=== PATIENT | male | born 1950 | race Caucasian/White ===

== ENCOUNTER 2016-04-22 15:12 | Emergency (ER) | payer OTHER ==
[~2016-04-22] VITALS: Ht 175.3 cm; Wt 91.2 kg
--- NOTE | ~2016-04-22 | EKG ---
[address] [place] [address] ELECTROCARDIOGRAM REPORT Name: AMBER DELATORRE [facility] [id number] Admission: 04/22/16 Attend Phys: Discharge: Date of : 54 Report #: [id number] THIS REPORT FOR: //name// [facility] ED Test Date: 2016-04-22 Test Time: 16:14:03 Pat Name: AMBER DELATORRE Department: Room: Gender: Systems Development Consultant: jaylene : 1950 Requested By: Lizzy Davila Order Number: [id number] MD: Masood Jim Measurements Intervals [place] Rate: 66 P: NE: 163 QRS: -59 QRSD: 135 T: 29 QT: 467 QTc: 490 Interpretive Statements Atrial-paced rhythm RBBB and LAFB Baseline wander in lead(s) V1 No previous ECG available for comparison Electronically Signed On 04-22-2016 16:38:35 SEPARATOR INSERTER by Masood Jim [email or web address] <ELECTRONICALLY SIGNED> By: Masood Jim MD 04/22/16 1638 1614 1614 Masood Jim MD /CARMINA
[~2016-04-22 15:12] MED LIST: AMANTADINE 100100 MG PO; ARICEPT10 MG PO; BENZTROPINE MES1 MG PO; CELEXA20 MG PO; CENTRUM SILVER1 EAC2 PO; CLOZAPINE100 M1 PO; DEPAKOTE 250MG250 M1 PO; FISH OIL 1,001000 M2 PO; HYDROCODON-ACE1 EAC7 PO; LEVOTHYROXINE 0.15MG PO; NAMENDA 10 MG T10 MG PO; OMEPRAZOLE40 MG PO; SIMVASTATIN20 MG PO; VITAMIN D3400 UNIT PO
[2016-04-22 15:40] LABS: ABSOLUTE NEUTROPHILS 7.1 thou/uL (1.4-8.2); BASOPHILS 0.8 % (0.0-2.0); EOSINOPHILS 4.9 % (0.0-3.0); HEMOGLOBIN 13.8 gm/dL (14.0-18.0); LYMPHOCYTES 25.9 % (24.0-44.0); MCHC 33.7 % (28.0-37.0); MCV 86.2 fL (80.0-100.0); PLATELET COUNT 234 thou/uL (150-400); POLYS 58.4 % (36.0-66.0); RBC 4.76 mil/uL (4.50-6.00); RDW 15.1 % (10.5-14.5); WBC 12.1 thou/uL (4.0-11.0)
[2016-04-22 15:41] LABS: MANUAL DIFF NO
[2016-04-22 15:48] LABS: ANION GAP 8 mmol/L (7-16); BUN 14 mg/dL (7-18); CALCIUM 9.6 mg/dL (8.5-10.1); CHLORIDE 103 mmol/L (98-107); CO2 31 mmol/L (21-32); CREATININE 1.1 mg/dL (0.6-1.3); GLUCOSE 94 mg/dL (70-99); POTASSIUM 4.2 mmol/L (3.5-5.1); SODIUM 142 mmol/L (136-145)
[2016-04-22 15:55] LABS: ACETAMINOPHEN < 2 ug/mL (10-30); ALKALINE PHOSPHATASE 129 U/L (46-116); SALICYLATE < 2.8 mg/dL (2.8-20.0); SGOT 13 U/L (15-37); SGPT 17 U/L (30-65); TOTAL BILIRUBIN 0.3 mg/dL (<0.1-1.0); TOTAL PROTEIN 7.2 g/dL (6.4-8.2)
[2016-04-22 16:44] LABS: URINE BILIRUBIN NEGATIVE (Negative); URINE BLOOD NEGATIVE (Negative); URINE COLOR YELLOW; URINE GLUCOSE-RANDOM* NEGATIVE (Negative); URINE KETONES NEGATIVE (Negative); URINE LEUKOCYTES-REFLEX NEGATIVE (Negative); URINE PROTEIN (DIPSTICK) NEGATIVE (Negative)
[2016-04-22 16:51] LABS: AMP/METHAMP Negative (Negative); BARBITURATES Negative (Negative); BENZODIAZEPINES Negative (Negative); COCAINE Negative (Negative); METHADONE Negative (Negative); OPIATES POSITIVE (Negative); PCP Negative (Negative); THC Negative (Negative)
== END 2016-04-22 17:43 | disposition home or self-care (01) ==
LOC: ER 15:12
PROVIDERS: Emergency Medicine
DX: T36.1X1A Poisoning by cephalosporins and other beta-lactam antibiotics, accidental (unintentional), initial encounter (principal); F20.9 Schizophrenia, unspecified; G61.0 Guillain-Barre syndrome; I10 Essential (primary) hypertension; G30.9 Alzheimer's disease, unspecified; F02.80 Dementia in other diseases classified elsewhere, unspecified severity, without behavioral disturbance, psychotic disturbance, mood disturbance, and anxiety; Z88.6 Allergy status to analgesic agent; Z88.1 Allergy status to other antibiotic agents; Z87.891 Personal history of nicotine dependence

== ENCOUNTER 2017-04-20 16:40 | Inpatient (IN) | payer OTHER ==
[~2017-04-20] VITALS: Ht 172.7 cm; Wt 83.5 kg
--- NOTE | ~2017-04-20 | EKG ---
[address] [place] [address] ELECTROCARDIOGRAM REPORT Name: AMBER DELATORRE Room #: 443-P ADM IN M.R.#: [id number] Admission: 04/20/17 Attend Phys: Kristopher Alvares DO Discharge: Date of : 54 Report #: [id number] THIS REPORT FOR: //name// [facility] ED Test Date: 2017-04-20 Test Time: 17:43:05 Pat Name: AMBER DELATORRE Department: Room: 443 Gender: M Seismology Technical Officer: akbar : 1950 Requested By: Jarret Cavanaugh Order Number: [id number] MD: Clement Kelley Measurements Intervals [place] Rate: 66 P: 7 VT: 146 QRS: -65 QRSD: 135 T: 20 QT: 465 QTc: 488 Interpretive Statements Sinus rhythm RBBB and LAFB Compared to ECG 06/01/2016 14:24:27 Atrial-paced complex(es) or rhythm no longer present Electronically Signed On 04-20-2017 23:05:59 FOREIGN LAW CONSULTANT by Clement Kelley [email or web address] <ELECTRONICALLY SIGNED> By: Clement Kelley MD 04/20/17 2306 [id number] 1743 Clement Kelley MD /CARMINA
[2017-04-20 16:41] VITALS: BP 127/77
[2017-04-20 17:50] LABS: HEMATOCRIT 40.2 % (42.0-52.0); HEMOGLOBIN 13.4 gm/dL (14.0-18.0); MCHC 33.3 g/dL (28.0-37.0); MCV 86.9 fL (80.0-100.0); PLATELET COUNT 126 thou/uL (150-400); RBC 4.63 mil/uL (4.50-6.00); RDW 15.6 % (10.5-14.5); WBC 6.5 thou/uL (4.0-11.0)
[2017-04-20] MEDS ORDERED: DOXYCYCLINE 10100 MG PO (17:58)
[2017-04-20] MEDS ORDERED: AMANTADINE 100100 M1 PO (17:58)
[2017-04-20 18:03] LABS: ANION GAP 13 mmol/L (7-16); BUN 37 mg/dL (7-18); CHLORIDE 105 mmol/L (98-107); CO2 25 mmol/L (21-32); CREATININE 1.2 mg/dL (0.7-1.3); GLUCOSE 76 mg/dL (74-106); POTASSIUM 3.9 mmol/L (3.5-5.1); SODIUM 143 mmol/L (136-145)
[2017-04-20 18:11] LABS: TROPONIN-I < 0.04 ng/mL (<0.06)
[2017-04-20] MEDS ORDERED: TESSALON PERLE100 MG PO (18:24)
[2017-04-20 18:27] LABS: ABSOLUTE NEUTROPHILS 4.2 thou/uL (1.4-8.2)
[2017-04-20 18:28] LABS: ANISOCYTOSIS 1+; POIKILOCYTOSIS SLIGHT; POLYCHROMASIA OCCASIONAL
[2017-04-20 21:50] VITALS: BP 136/84
[2017-04-20 22:25] VITALS: BP 114/82
[2017-04-21 03:20] VITALS: BP 133/67
[2017-04-21 03:54] LABS: HEMATOCRIT 40.2 % (42.0-52.0); HEMOGLOBIN 13.1 gm/dL (14.0-18.0); MCH 28.5 pg (26.0-34.0); MCHC 32.7 g/dL (28.0-37.0); MCV 87.4 fL (80.0-100.0); RBC 4.6 mil/uL (4.50-6.00); RDW 15.8 % (10.5-14.5); WBC 5.8 thou/uL (4.0-11.0)
[2017-04-21 04:02] LABS: CALCIUM 8.4 mg/dL (8.5-10.1); POTASSIUM 3.6 mmol/L (3.5-5.1)
[2017-04-21 08:08] VITALS: BP 134/76
[2017-04-21 17:23] VITALS: BP 148/75
[2017-04-21 19:21] VITALS: BP 144/75
[2017-04-22 05:19] VITALS: BP 121/67
[2017-04-22 05:30] LABS: HEMATOCRIT 37.1 % (42.0-52.0); HEMOGLOBIN 12.2 gm/dL (14.0-18.0); MCH 28.7 pg (26.0-34.0); MCV 87.2 fL (80.0-100.0); RBC 4.26 mil/uL (4.50-6.00); RDW 15.3 % (10.5-14.5); WBC 7.8 thou/uL (4.0-11.0)
[2017-04-22 05:53] LABS: ALBUMIN 2.5 g/dL (3.4-5.0); CALCIUM 8.1 mg/dL (8.5-10.1); CREATININE 0.8 mg/dL (0.7-1.3); POTASSIUM 3.5 mmol/L (3.5-5.1); TOTAL BILIRUBIN 0.5 mg/dL (<0.1-1.0); TOTAL PROTEIN 5.8 g/dL (6.4-8.2)
[2017-04-22 08:15] VITALS: BP 122/65
[2017-04-22 15:45] VITALS: BP 113/81
[2017-04-22 19:42] VITALS: BP 134/112
[2017-04-23 04:32] VITALS: BP 143/81
[2017-04-23 06:13] LABS: HEMATOCRIT 37.5 % (42.0-52.0); HEMOGLOBIN 12.3 gm/dL (14.0-18.0); MCH 28.6 pg (26.0-34.0); MCHC 32.7 g/dL (28.0-37.0); MCV 87.5 fL (80.0-100.0); RBC 4.28 mil/uL (4.50-6.00); RDW 15.8 % (10.5-14.5); WBC 6.1 thou/uL (4.0-11.0)
[2017-04-23 06:35] LABS: ALBUMIN 2.3 g/dL (3.4-5.0); CALCIUM 8.3 mg/dL (8.5-10.1); CREATININE 0.8 mg/dL (0.7-1.3); POTASSIUM 3.8 mmol/L (3.5-5.1); TOTAL BILIRUBIN 0.5 mg/dL (<0.1-1.0); TOTAL PROTEIN 5.7 g/dL (6.4-8.2)
[2017-04-23 08:28] VITALS: BP 127/73
[2017-04-23 14:19] VITALS: BP 127/73
[2017-04-23 14:33] VITALS: BP 127/73
[2017-10-23] MEDS ORDERED: MSL20MG/ML SUBLING (12:20)
[2017-10-23] MEDS ORDERED: LASIX 10 MG/10 MG/M1 PO (12:20)
[2017-10-23] MEDS ORDERED: ONDANSETRON ODT4 MG PO (12:20)
[2017-10-23] MEDS ORDERED: LORAZEPAM I2 MG/1 M2 SUBLING (12:20)
== END 2017-04-23 14:55 | disposition home health service (06) | DRG 682 ==
LOC: ER 16:40 → EROBS 19:49 → 4S 19:49
PROVIDERS: Emergency Medicine; Hospitalist; Nurse Practitioner Family
DX: N17.0 Acute kidney failure with tubular necrosis (principal); E43 Unspecified severe protein-calorie malnutrition; J40 Bronchitis, not specified as acute or chronic; C43.9 Malignant melanoma of skin, unspecified; G30.9 Alzheimer's disease, unspecified; F02.80 Dementia in other diseases classified elsewhere, unspecified severity, without behavioral disturbance, psychotic disturbance, mood disturbance, and anxiety; I10 Essential (primary) hypertension; F20.9 Schizophrenia, unspecified; E78.5 Hyperlipidemia, unspecified; D69.6 Thrombocytopenia, unspecified; I48.91 Unspecified atrial fibrillation; Z79.899 Other long term (current) drug therapy; Z95.0 Presence of cardiac pacemaker; Z88.1 Allergy status to other antibiotic agents; Z88.8 Allergy status to other drugs, medicaments and biological substances; Z87.891 Personal history of nicotine dependence
CPT/HCPCS: 10100

== ENCOUNTER 2017-06-24 16:52 | Inpatient (IN) | payer OTHER ==
[~2017-06-24] VITALS: Ht 172.7 cm; Wt 85.7 kg
--- NOTE | ~2017-06-24 | HC ---
[facility] [place] [address] CONSULTATION Name: AMBER DELATORRE Room #: 428-P [facility] IN M.R.#: [id number] Admission: 06/24/17 Attend Phys: Tae Beltre MD Discharge: Date of : 54 Report #: [id number] THIS REPORT FOR: //name// CC: Tae Salgado HISTORY OF PRESENT ILLNESS: This patient is known to me for therapy of metastatic malignant melanoma. He most recently has received ipilimumab and Opdivo for progressive bony metastatic disease involving his right femur. This therapy was held because of development of watery diarrhea. The nivolumab-ipilimumab infusion was begun on 05/29/2017 for one cycle only. He, on 06/19/2017, was placed on prednisone 50 mg each morning. In spite of this, he has continued to have watery bowel movements and was brought to the Emergency Room with weakness and diarrhea. He denies shaking chills or fevers. He is unaware of any new masses or pain. He has had some blood mixed in with his stool. PAST MEDICAL HISTORY: Significant for medically managed hypertension, hypothyroidism, hyperlipidemia, Guillain [place], Alzheimer's and schizophrenia. He had a melanoma removed from his scalp in 2014. In March 2016, he was found to have a painful pelvic mass that on biopsy showed metastatic melanoma. This tumor was BRAF mutation wild type and he went on to receive palliative radiation therapy to the right ilium on 04/27/2016. He subsequently started receiving Keytruda along with Zometa in 05/2016. In spite of palliative radiation therapy, this area experienced a pathologic fracture, but interestingly has become pain-free and he is able to walk on this hip. A PET scan on 04/05/2017 shows new bony lesions leading to the aforementioned change in his current therapy. FAMILY HISTORY: Not contributory. SOCIAL HISTORY: He is a nondrinker, nonsmoker. REVIEW OF SYSTEMS: As in the history of present illness. PHYSICAL EXAMINATION: GENERAL: Shows a mentally slow, white male who is happy and friendly and currently not complaining. He is afebrile. HEENT: Shows him to be normocephalic. CARDIOVASCULAR: Normal S1, S2. CHEST: Clear. ABDOMEN: Soft. NEUROLOGIC: Shows no focal localizing signs. PSYCHIATRIC: Not agitated or confused. He is mentally impaired. [address] [address] CONSULTATION Name: AMBER DELATORRE Room #: [address] [place] [address] IN M.R.#: [id number] Admission: 06/24/17 Attend Phys: Tae Beltre MD Discharge: Date of : 54 Report #: [id number] SKIN: Shows bruising, but normal turgor. LABORATORY DATA: Include a CAT scan showing diffuse colitis. ASSESSMENT: 1. Known metastatic malignant melanoma. 2. Assumed immunotherapy-related colitis with diarrhea. PLAN: The patient has been on hold from his treatment and we will increase his dose of steroids. A colonoscopy is planned. Thanks for notifying me of his hospitalization and allowing me to participate in his care. By: 1500 1618 Carolina Ervin MD /cyndi
--- NOTE | ~2017-06-24 | S ---
[facility] [place] [address] SURGICAL PATH RPT PROCEDURE Name: AMBER CUELLO Room #: 226-P ADM IN M.R.#: [id number] Admission: 06/24/17 Date of : 54 Discharge: Report #: [id number] Path Case #: [id number] PATHOLOGY REPORT COLLECTION DATE: 06/27/2017 RECEIVED DATE: 06/27/2017 SUBMITTING PHYS: Dr. Kita Jim OTHER PHYS: Tae Beltre M.D. Dr. Shreyas Salgado SPECIMEN(S) RECEIVED: A.Terminal ileum B.Ulcerated cecum C.Ascending colon D.Splenic flexure polyp E.Random bx of ulcerated sigmoid colon F.Ulcerated rectum * * * * * * * * * * * * FINAL DIAGNOSIS: A. Small bowel mucosa, terminal ileum, endoscopic biopsy: - No diagnostic abnormalities present. B. Large intestinal mucosa, ulcerated cecum, endoscopic biopsy: - Marked active colitis, history of ulcerative colitis. - Negative for dysplasia or malignancy. C. Large intestinal mucosa, ascending colon, endoscopic biopsy: - Marked active colitis, history of ulcerative colitis. - Negative for dysplasia or malignancy. D. Polyp, at splenic flexure, endoscopic biopsy: - Favor reactive changes within polypoid mucosa. - Marked active colitis, history of ulcerative colitis. - Negative for dysplasia or malignancy. E. Large intestinal mucosa, random/ulcerated sigmoid colon, endoscopic biopsy: - Marked active colitis, history of ulcerative colitis. - Negative for dysplasia or malignancy. F. Large intestinal mucosa, ulcerated rectum, endoscopic biopsy: - Marked active colitis, history of ulcerative colitis. - Negative for dysplasia or malignancy. COMMENT: Examination shows a markedly expanded lamina propria comprised of neutrophils, eosinophils, lymphocytes as well as plasma cells. Basal plasmacytosis is identified in scattered foci. In addition, there is surface epithelial ulceration, crypt abscess formation, as well as extensive cryptitis present. There are no granulomata identified. All fragments sampled show a similar intensity of inflammation. [facility] [address] [place] [address] SURGICAL PATH RPT PROCEDURE Name: AMBER CUELLO Room #: 226-P ADM IN M.R.#: [id number] Admission: 06/24/17 Date of : 54 Discharge: Report #: [id number] Path Case #: [id number] Findings are consistent with the provided history of ulcerative colitis. The fragments sampled as "polyp at splenic flexure" is consistent with an inflammatory polyp with marked active inflammation present. There are reactive changes with stratification of the epithelial cells identified; however, the intensity of inflammation supports a reactive process. Please correlate clinically and follow-up as indicated. (IUV:db; 06/28/2017) PATHOLOGIST: Salma Mariee M.D. REPORT ELECTRONICALLY SIGNED BY: Salma Mariee M.D. DATE/TIME: 06/28/2017 14:53 * * * * * * * * * * * * GROSS PATHOLOGY: A. received in formalin labeled "Amber Cuello, BX terminal ileum" and consists of 2 soft scanlon tissue fragments measuring 0.2 and 0.4 cm. There are entirely submitted as A1. B. The specimen is received in formalin, labeled "Amber Cuello, BX of ulcerated cecum" and consists of 2 soft scanlon tissue fragments each averaging 0.3 cm. They are entirely submitted as B1. C. The specimen is received in formalin, labeled "Amber Cuello, BX of ascending colon" and consists of 2 soft scanlon tissue fragments measuring 0.2 and 0.4 cm. There are entirely submitted as C1. D. The specimen is received in formalin, labeled "Amber Cuello, BX of polyp at splenic flexure" and consists of 2 soft scanlon tissue fragments measuring 0.3 and 0.6 cm. They are entirely submitted as D1. E. The specimen is received in formalin, labeled "Amber Cuello, random BX of ulcerated sigmoid colon" and consists of 2 soft scanlon tissue fragments each averaging 0.4 cm. There are entirely submitted as E1. F. The specimen is received in formalin, labeled "Amber Cuello, BX of ulcerated rectum" and consists of a 0.4 cm soft scanlon tissue fragment which is entirely submitted as F1. (JEAN; 06/27/2017) CLINICAL HISTORY: Colitis, GI bleed, patient Obdivo, RLQ pain, ulcerative colitis INITIAL CPT CODE(S): A; 54266 B; 80541 C; 53458 D; [address] [address] SURGICAL PATH RPT PROCEDURE Name: AMBER CUELLO Room #: 226-P ADM IN M.R.#: [id number] Admission: 06/24/17 Date of : 54 Discharge: Report #: [id number] Path Case #: [id number]; [id number] F; [id number] Professional services performed by [facility] at [facility] [address] [place] [address] Technical services performed by [facility] at [address] [place] [address], [facility] [address] [address]. [facility] [address] [place] [address] PHONE: [phone] DIRECTOR: Renny Tompkins M.D. * * * END OF REPORT * * *
--- NOTE | ~2017-06-24 | HC ---
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 He has been on immunotherapy for his metastatic melanoma. He had diarrhea x 10 days and will occur approximately 10 minutes after eating. He has been on loperamide. He does have pathologic fracture of his right iliac bone. CT scan was obtained here and showed evidence of colitis. Diarrhea was thought to be possibly due to C. diff, although C. diff culture was noted to be negative and it is thought that may be due to . He is to have colonoscopy. He has the lower extremity weakness and decreased functional mobility and ADLs and we are seeing him in rehabilitation medicine consultation. PAST MEDICAL HISTORY: As noted above. He has also had a cardiac pacer with defibrillator and hypertension. MEDICATIONS: Please see the full medication listing. ALLERGIES: BACITRACIN, CORTIZONE, NEOMYCIN AND POLYMYXIN. HABITS: Past history of tobacco abuse, quit greater than a year ago, history of alcohol use weekly. SOCIAL HISTORY: Lives with his sister who apparently is older than he is and assist with him. She cares for his medications, drives him to appointments. Two steps in. He was able to ambulate independently utilizing a walker and was able to do his own ADLs. REVIEW OF SYSTEMS: Complains of the diarrhea. No complaints of chest pain, shortness of breath or abdominal discomfort. He has bilateral lower extremity weakness, which he relates back to Guillain-[place] syndrome. He notes that since he had the Guillain-[place] syndrome in the past. He is needing to utilize the walker to assist for his weakness. PHYSICAL EXAMINATION: GENERAL: A pleasant 66-year-old white male in no obvious distress. VITAL SIGNS: Last recorded temperature 36.5, pulse 65, respirations 17, blood pressure 133/80. NEUROLOGIC: He is alert, follows basic 1 step commands without difficulty. [facility] [address] [place] [address] CONSULTATION Name: AMBER DELATORRE Room #: 226-P [facility] IN .R.#: [id number] Admission: 06/24/17 Attend Phys: Tae Beltre MD Discharge: Date of : 54 Report #: [id number] HEENT: Facies are symmetric. EXTREMITIES: Functional range of motion of both upper extremities, with strength grade 4-/5. DTRs are trace to 1. In his lower extremities, no focal pain complaints with gentle motion of the lower extremities. Would grade his strength, probably a grade 3+ to 4-/5. DTRs are 1. There was no clonus. He has been standby assistance with sit to stand. Gait was 4 steps contact guard with a front-wheeled walker. ASSESSMENT: A 66-year-old white male with the following problems: 1. Lower extremity weakness/past history of paraparesis. 2. Past history of Guillain-[place] syndrome. 3. Intractable diarrhea to have colonoscopy. 4. History of metastatic melanoma. He has been on Ashish 5. Question of mild Alzheimer's. 6. History of schizophrenia. 7. Pacer defibrillator. 8. Hypertension. PLAN: Therapies are continuing to work with him. OT to evaluate. We will be glad to follow along with you regarding his rehab therapy needs. By: 1145 1920 Bello Samuel MD /PMT
[~2017-06-24 16:52] MED LIST changes: +AMANTADINE 100100 M1 PO; +DOXYCYCLINE 10100 MG PO; +TESSALON PERLE100 MG PO
[2017-06-24 16:57] VITALS: BP 141/78
[2017-06-24 17:23] LABS: HEMATOCRIT 41.4 % (42.0-52.0); HEMOGLOBIN 13.4 gm/dL (14.0-18.0); MCH 27.8 pg (26.0-34.0); MCHC 32.4 g/dL (28.0-37.0); MCV 85.8 fL (80.0-100.0); PLATELET COUNT 226 thou/uL (150-400); RBC 4.82 mil/uL (4.50-6.00); RDW 16.5 % (10.5-14.5); WBC 13.9 thou/uL (4.0-11.0)
[2017-06-24 17:30] LABS: ANION GAP 6 mmol/L (7-16); BUN 19 mg/dL (7-18); CALCIUM 8.6 mg/dL (8.5-10.1); CHLORIDE 103 mmol/L (98-107); CO2 28 mmol/L (21-32); CREATININE 1.3 mg/dL (0.7-1.3); GLUCOSE 114 mg/dL (74-106); POTASSIUM 3.9 mmol/L (3.5-5.1); SODIUM 137 mmol/L (136-145)
[2017-06-24 17:36] LABS: SGOT 24 U/L (15-37); SGPT 27 U/L (30-65); TOTAL BILIRUBIN 0.2 mg/dL (<0.1-1.0); TOTAL PROTEIN 5.7 g/dL (6.4-8.2)
[2017-06-24 17:37] LABS: ALBUMIN < 0.6 g/dL (3.4-5.0)
[2017-06-24 18:04] LABS: ABSOLUTE NEUTROPHILS 11.7 thou/uL (1.4-8.2); METAMYELOCYTES 2 %
[2017-06-24 18:05] LABS: ANISOCYTOSIS 1+
[2017-06-24 18:38] LABS: URINE BILIRUBIN 1+ (Negative); URINE BLOOD NEGATIVE (Negative); URINE CLARITY CLEAR; URINE COLOR YELLOW; URINE GLUCOSE-RANDOM* NEGATIVE (Negative); URINE KETONES TRACE (Negative); URINE LEUKOCYTES-REFLEX NEGATIVE (Negative); URINE NITRITE-REFLEX NEGATIVE (Negative); URINE PROTEIN (DIPSTICK) 1+ (Negative); URINE SPECIFIC GRAVITY >= 1.030 (1.005-1.035); URINE UROBILINOGEN 0.2 E.U./dl (0.2-1.0)
[2017-06-24 18:40] LABS: ICTOTEST (BILI CONFIRMATORY) Negative (Negative)
[2017-06-24 18:45] LABS: SQUAMOUS 0-3 Few /LPF (0-3)
[2017-06-24 18:46] LABS: BACTERIA-REFLEX 1-9 Few /HPF (None Seen); CASTS None Seen /LPF (None Seen); MUCUS >6 Heavy strn/LPF (None Seen); URINE RBC None Seen /HPF (0-2); URINE WBC-REFLEX 0-5 Rare /HPF (0-5)
[2017-06-24 18:47] LABS: CRYSTALS None Seen /LPF (None Seen)
[2017-06-24] MEDS ORDERED: NAMENDA 10 MG T10 MG PO (19:58)
[2017-06-24] MEDS ORDERED: SYNTHROID75 MCG PO (19:58)
[2017-06-24] MEDS ORDERED: MEDROL4 MG PO (20:07)
[2017-06-24] MEDS ORDERED: ONDANSETRON ODT4 MG PO (20:08)
[2017-06-24] MEDS ORDERED: PROMS25 WY RECTAL (20:08)
[2017-06-24] MEDS ORDERED: ZOMETA 4 MG4 MG/5 M1 IV PUSH (20:09)
[2017-06-24 20:10] VITALS: BP 117/66
[2017-06-24 20:50] VITALS: BP 125/82
[2017-06-24 20:55] LABS: CHOLESTEROL 128 mg/dL (<200); HDL CHOLESTEROL 55 mg/dL (>40); LDL CHOLESTEROL 51 mg/dL (<100); TC:HDL 2.3 Ratio (Not establshd); TRIGLYCERIDE 111 mg/dL (<150); VLDL 22 mg/dL (<40)
[2017-06-25 00:20] VITALS: BP 150/93
[2017-06-25 03:45] VITALS: BP 95/78
[2017-06-25 06:01] LABS: HEMATOCRIT 39.3 % (42.0-52.0); HEMOGLOBIN 12.7 gm/dL (14.0-18.0); MCH 27.7 pg (26.0-34.0); MCHC 32.3 g/dL (28.0-37.0); MCV 85.9 fL (80.0-100.0); RBC 4.57 mil/uL (4.50-6.00); RDW 17.3 % (10.5-14.5); WBC 16.5 thou/uL (4.0-11.0)
[2017-06-25 06:19] LABS: CALCIUM 7.8 mg/dL (8.5-10.1); CREATININE 1.1 mg/dL (0.7-1.3); POTASSIUM 3.4 mmol/L (3.5-5.1)
[2017-06-25 06:48] LABS: TSH 0.149 uIU/mL (0.358-3.740)
[2017-06-25 08:40] VITALS: BP 116/65
[2017-06-25 15:20] VITALS: BP 127/70
[2017-06-25 20:30] VITALS: BP 91/58
[2017-06-26 01:44] VITALS: BP 91/58
[2017-06-26 04:30] VITALS: BP 119/70
[2017-06-26 07:40] VITALS: BP 133/80
[2017-06-26 19:29] VITALS: BP 115/58
[2017-06-27 06:29] LABS: HEMATOCRIT 40.4 % (42.0-52.0); HEMOGLOBIN 13.1 gm/dL (14.0-18.0); MCH 27.8 pg (26.0-34.0); MCHC 32.5 g/dL (28.0-37.0); MCV 85.4 fL (80.0-100.0); PLATELET COUNT 199 thou/uL (150-400); RBC 4.73 mil/uL (4.50-6.00); WBC 12.8 thou/uL (4.0-11.0)
[2017-06-27 06:50] LABS: CALCIUM 8.3 mg/dL (8.5-10.1); CREATININE 1.1 mg/dL (0.7-1.3); POTASSIUM 4.3 mmol/L (3.5-5.1)
[2017-06-27 07:20] VITALS: BP 116/64
[2017-06-27 07:49] LABS: ABSOLUTE NEUTROPHILS 8.8 thou/uL (1.4-8.2); METAMYELOCYTES 10 %; MYELOCYTES 2 %
[2017-06-27 07:50] LABS: ANISOCYTOSIS 1+; OVALOCYTES 1+; POLYCHROMASIA OCCASIONAL
[2017-06-27 20:00] VITALS: BP 122/84
[2017-06-28 07:21] VITALS: BP 120/60
[2017-06-28 13:28] VITALS: BP 120/60
[2017-06-28] MEDS ORDERED: PREDNISONE 20 M20 MG PO (14:42)
== END 2017-06-28 16:22 | disposition home health service (06) | DRG 391 ==
LOC: ER 16:52 → 4E 18:36 → EROBS 18:36 → 4E 20:11 → SICU 06-26 15:32 → ENTRNSPT 06-28 15:31 → EDTRNSPTSTS 06-28 15:34 → SICU 06-28 16:22
PROVIDERS: Family Medicine; Hospitalist; Physician Assistant
DX: K52.9 Noninfective gastroenteritis and colitis, unspecified (principal); E43 Unspecified severe protein-calorie malnutrition; N39.0 Urinary tract infection, site not specified; G61.0 Guillain-Barre syndrome; K92.1 Melena; K51.00 Ulcerative (chronic) pancolitis without complications; G82.20 Paraplegia, unspecified; C79.89 Secondary malignant neoplasm of other specified sites; D72.829 Elevated white blood cell count, unspecified; G30.9 Alzheimer's disease, unspecified; I10 Essential (primary) hypertension; F20.9 Schizophrenia, unspecified; K63.5 Polyp of colon; F02.80 Dementia in other diseases classified elsewhere, unspecified severity, without behavioral disturbance, psychotic disturbance, mood disturbance, and anxiety; E03.9 Hypothyroidism, unspecified; E78.5 Hyperlipidemia, unspecified; Z88.1 Allergy status to other antibiotic agents; Z88.8 Allergy status to other drugs, medicaments and biological substances; Z95.0 Presence of cardiac pacemaker; Z87.891 Personal history of nicotine dependence; Z79.899 Other long term (current) drug therapy; Z68.28 Body mass index [BMI] 28.0-28.9, adult
CPT/HCPCS: 10084; 15002; 62110; 62900; 70005

== ENCOUNTER → 2017-07-13 | Outpatient (CLI) | payer OTHER ==
[~2017-07-13] VITALS: Ht 175.3 cm; Wt 85.7 kg
[~2017-07-13] MED LIST changes: +MEDROL4 MG PO; +ONDANSETRON ODT4 MG PO; +PREDNISONE 20 M20 MG PO; +PROMS25 WY RECTAL; +SYNTHROID75 MCG PO; +ZOMETA 4 MG4 MG/5 M1 IV PUSH
[2017-07-13 09:49] VITALS: BP 122/79
[2017-07-13 09:52] LABS: HEMATOCRIT 43.5 % (42.0-52.0); MCHC 32.3 g/dL (28.0-37.0); MCV 86.8 fL (80.0-100.0); RBC 5.01 mil/uL (4.50-6.00); RDW 18.7 % (10.5-14.5); WBC 11.4 thou/uL (4.0-11.0)
[2017-07-13 09:59] LABS: CALCIUM 8.9 mg/dL (8.5-10.1); CREATININE 1.3 mg/dL (0.7-1.3); POTASSIUM 3.9 mmol/L (3.5-5.1)
== END | disposition home or self-care (01) ==
LOC: SPEC 06:22
PROVIDERS: Radiology Diagnostic Radiology
DX: Z45.2 Encounter for adjustment and management of vascular access device (principal); C43.9 Malignant melanoma of skin, unspecified; I10 Essential (primary) hypertension; E03.9 Hypothyroidism, unspecified; E78.5 Hyperlipidemia, unspecified; F20.9 Schizophrenia, unspecified; Z95.0 Presence of cardiac pacemaker; Z87.891 Personal history of nicotine dependence; Z98.890 Other specified postprocedural states; Z87.440 Personal history of urinary (tract) infections; Z88.8 Allergy status to other drugs, medicaments and biological substances; Z79.899 Other long term (current) drug therapy

== ENCOUNTER → 2017-08-07 | Outpatient (CLI) | payer OTHER ==
[~2017-08-07] MED LIST changes: +COLESTIPOL HCL1 G1 PO; +DILTIAZEM 24HR180 M1 PO; +DUONEB 2.5-0.5 M3 ML INH; +HYDROCODONE-AP1 EAC6 PO; +PACERONE 200 M200 MG PO; +VANCOMYCIN HCL10 GM PO; +VANCOMYCIN1 GM/200 M IV
== END ==
LOC: ULTRA 12:48
DX: R60.0 Localized edema (principal)

== ENCOUNTER 2017-08-08 12:30 | Inpatient (IN) | payer OTHER ==
[2017-08-08] VITALS (21 sets, daily range): BP systolic 99–148; BP diastolic 44–94
[~2017-08-08] VITALS: Ht 172.7 cm; Wt 96.7 kg
--- NOTE | ~2017-08-08 | EKG ---
[address] [address] ELECTROCARDIOGRAM REPORT Name: NANDINI,AMBER Room #: 243-P ADM IN M.R.#: [id number] Admission: 08/08/17 Attend Phys: Sam Yates MD Discharge: Date of : 54 Report #: [id number] THIS REPORT FOR: //name// [facility] Test Date: 2017-08-09 Test Time: 15:21:28 Pat Name: AMBER DELATORRE Department: Room: 243 P Gender: M Meat Cooler: Geraldo MONT[place]UE : 1950 Requested By: Sam Yates Order Number: [id number] MD: Dawit Whitley Measurements Intervals [place] Rate: 119 P: IN: QRS: -54 QRSD: 120 T: 18 QT: 394 QTc: 555 Interpretive Statements Atrial fibrillation RBBB and LAFB Compared to ECG 08/08/2017 13:46:48 Sinus tachycardia no longer present Electronically Signed On 08-10-2017 8:50:21 CDT by Dawit Whitley [email or web address] <ELECTRONICALLY SIGNED> By: Dawit Whitley MD, [facility] 08/10/17 0850 20 20 Dawit Whitley MD, [facility] /EPI
--- NOTE | ~2017-08-08 | TEE ---
[facility] [address] [place] [address] TRANSESOPHAGEAL ECHOCARDIOGRAM Name: AMBER DELATORRE Room #: 212-P ADM IN M.R.#: [id number] Admission: 08/08/17 Attend Phys: Geraldo Bonilla Discharge: Date of : 54 Date of Service: 08/14/17 0836 Report #: [id number] THIS REPORT FOR: //name// APPROVED REPORT Study performed: 08/14/2017 07:59:12 EXAM: Comprehensive 2D, Doppler, and color-flow Echocardiogram Patient Location: [facility] Room #: [facility] Status: routine BSA: 2.10 HR: 65 bpm BP: 115/93 mmHg Rhythm: Pacemaker Other Information Study Quality: Good Indications Bacteremia. Rule out endocarditis. Hx: Afib, pacemaker Echo Enhancing Agent Indication: Rule out Shunt Agent(s) / Amount(s) Used: Agitated Saline 6 cc Procedure After obtaining informed consent, patient underwent transesophageal echo in the [employer]. Type of Sedation : Conscious Sedation Sedation was administered by Charmaine Foley RN. Sedation was achieved intravenously with: Versed (3) Fentanyl (50) Transesophageal probe was inserted and advanced into esophagus without difficulty by Dawit Whitley MD. The MIRIAN was performed without complications. Throughout the procedure, the blood pressure, pulse oximetry, cardiac rhythm, and rate were monitored. The patient tolerated the procedure without adverse effects. Recovery from conscious sedation was uneventful and vital signs were stable. Left Ventricle The left ventricle is normal size. There is normal LV segmental wall [facility] [address] [place] [address] TRANSESOPHAGEAL ECHOCARDIOGRAM Name: AMBER DELATORRE Room #: 212-P [facility] IN M.R.#: [id number] Admission: 08/08/17 Attend Phys: Geraldo Bonilla Discharge: Date of : 54 Date of Service: 08/14/17 0836 Report #: [id number] motion. There is normal left ventricular wall thickness. Left ventricular systolic function is normal. LVEF is 55-60%. Right Ventricle The right ventricle is normal size. The right ventricular systolic function is normal. Pacemaker lead is present in the right ventricle. Atria Left atrium is mildly dilated. No thrombus is visualized in the left atrium or appendage. No shunting noted by contrast bubble injection. The right atrium size is normal. Aortic Valve Aortic valve is trileaflet. No aortic regurgitation is present. There is no aortic valvular stenosis. Mitral Valve The mitral valve is normal in structure. Mild mitral regurgitation. Tricuspid Valve The tricuspid valve is normal in structure. Trace tricuspid regurgitation. Pulmonic Valve The pulmonary valve is normal in structure. Trace pulmonic regurgitation. Great Vessels The aortic root is normal in size. IVC is normal in size and collapses >50% with inspiration. Pericardium There is no pericardial effusion. <Conclusion> Left ventricular systolic function is normal. There is normal LV segmental wall motion. LVEF is 55-60%. Left atrium is mildly dilated. Pacing wires in the right heart No thrombus is visualized in the left atrium or appendage. No shunting noted by contrast bubble injection. Aortic valve is trileaflet. No aortic regurgitation or stenosis The mitral valve is normal in structure. Mild mitral regurgitation. [facility] [address] [place] [address] TRANSESOPHAGEAL ECHOCARDIOGRAM Name: AMBER DELATORRE Room #: 212-P ADM IN M.R.#: [id number] Admission: 08/08/17 Attend Phys: Geraldo Bonilla Discharge: Date of : 54 Date of Service: 08/14/17835 Report #: [id number] Minimal plaquing in aorta, no aneurysm There is no pericardial effusion. <ELECTRONICALLY SIGNED> By: Dawit Whitley MD, FACC 08/14/17835 5 5 Dawit Whitley MD, FACC /INF
--- NOTE | ~2017-08-08 | 2DMMODE ---
[facility] [place] [address] 2 D/M-MODE ECHOCARDIOGRAM Name: AMBER DELATORRE Room #: 243-P ADM IN M.R.#: [id number] Admission: 08/08/17 Attend Phys: Geraldo Bonilla Discharge: Date of : 54 Date of Service: 08/10/17 0953 Report #: [id number] THIS REPORT FOR: //name// APPROVED REPORT Study performed: 08/10/2017 08:47:18 EXAM: Comprehensive 2D, Doppler, and color-flow Echocardiogram Patient Location: ICU Room #: 243 Status: routine BSA: 2.00 HR: 103 bpm BP: 129/80 mmHg Other Information Study Quality: AdequateTechnically Difficult Indications Atrial Fibrillation Left Ventricle The left ventricle is normal size. There is normal left ventricular wall thickness. The left ventricular systolic function is normal. The left ventricular ejection fraction is within the normal range. LVEF is 55%. Right Ventricle The right ventricle is normal size. The right ventricular systolic function is normal. Pacemaker lead is present in the right ventricle. Atria Left atrium is dilated. The right atrium size is normal. Pacemaker lead is present in the right atrium. Aortic Valve The aortic valve is normal in structure. Mitral Valve The mitral valve is normal in structure. Tricuspid Valve The tricuspid valve is normal in structure. Great Vessels [facility] [address] [address] 2 D/M-MODE ECHOCARDIOGRAM Name: AMBER DELATORRE Room #: 243-P ADM IN M.R.#: [id number] Admission: 08/08/17 Attend Phys: Geraldo Bonilla Discharge: Date of : 54 Date of Service: 08/10/17 0953 Report #: [id number] The aortic root is normal in size. Pericardium There is no pericardial effusion. <Conclusion> The left ventricle is normal size. LVEF is 55%. Left atrium is dilated. The right atrium size is normal. Pacemaker lead is present in the right atrium. The aortic valve is normal in structure. The mitral valve is normal in structure. The tricuspid valve is normal in structure. There is no pericardial effusion. Pacemaker lead is present in the right ventricle. <ELECTRONICALLY SIGNED> By: Brodie Valerio MD 08/10/1753 2 2 Brodie Valerio MD /INF
--- NOTE | ~2017-08-08 | HC ---
[facility] [place] [address] CONSULTATION Name: AMBER DELATORRE Room #: [facility] IN M.R.#: [id number] Admission: 08/08/17 Attend Phys: Sam Yates MD Discharge: Date of : 54 Report #: [id number] THIS REPORT FOR: //name// CC: Shreyas Yates HISTORY OF PRESENT ILLNESS: This patient is known to me and was seen in the Emergency Room where he presented with a change in mental status. His sister was present. He now has been intubated and is on pressors for hypotension after being found in this unresponsive state. He has known metastatic malignant melanoma with progressive bony metastatic disease involving the right femur and received 1 dose of ipilimumab on 05/29/2017 in conjunction with Opdivo. This resulted subsequently in severe watery diarrhea which led to discontinuation of therapy and has been on a tapering schedule of prednisone in the past [address] White on Sunday, August 06 at which time his diarrhea was completely resolved and was tapered further on his prednisone. He had originally been receiving 150 mg daily, which had been tapered down to 80 mg, but inadvertently he was taking 110. Prednisone at that time was dropped to 60 mg. In May, both cortisol and ACTH levels were normal. When he saw Dr. White, his white count was 13,900 with 11 bands, 39% hematocrit, platelets were 111 and albumin of 3.1. Visit at that time also led to a Doppler study being performed for evaluation of his leg edema with no evidence found of DVT. PAST MEDICAL HISTORY: Significant for medically managed hypertension, hypothyroidism, hyperlipidemia, Guillain-Mcdonough, Alzheimer's and schizophrenia. Recent TSH was also normal. He had melanoma removed from scalp in 2014. In March of 2016, he was found to have a painful pelvic mass that was shown to be metastatic malignant melanoma. This was BRAF wild type and he received radiation therapy to the right ilium on 04/27/2016. He was treated with Zometa and Keytruda starting in May of 2016. In spite of his palliative radiation therapy, he experienced a pathologic fracture involving his hip. A PET scan on April 19 showed new bony lesions leading to the change of therapy as indicated above. ALLERGIES: NEOMYCIN, BACITRACIN, CORTISONE. HOME MEDICATIONS: As listed. FAMILY HISTORY: Noncontributory. SOCIAL HISTORY: He is a nondrinker, nonsmoker. He is currently sedated and [facility] [address] [place] [address] CONSULTATION Name: AMBER DELATORRE Room #: 212-P [facility] IN [facility]#: [id number] Admission: 08/08/17 Attend Phys: Sam Yates MD Discharge: Date of : 54 Report #: [id number] intubated and is also minimally dull. PHYSICAL EXAMINATION: GENERAL: Shows him to be sedated on the ventilator in the ICU. HEENT: Shows him with endotracheal tube in his mouth. CHEST: Clear. CARDIOVASCULAR: Normal S1, S2. ABDOMEN: Soft. EXTREMITIES: Show 3+ edema with skin breaks. He has a port in his left chest. LYMPHATICS: Did not reveal suspicious supraclavicular or axillary adenopathy. LABORATORY STUDIES: Reviewed and show a further drop in his platelet count with increased white count. ASSESSMENT: Presumed sepsis with shock and suspected Staph as the organism. Culture was taken from his central line before starting antibiotics. As discussed earlier, Dr. Yates will continue supportive care. Again, he is not currently receiving any therapy for his known metastatic malignant melanoma. <ELECTRONICALLY SIGNED> By: Carolina Ervin MD 08/14/17 0825 [id number] [id number] Carolina Ervin MD /nt
--- NOTE | ~2017-08-08 | EEG ---
[facility] [place] [address] ELECTROENCEPHALOGRAM Name: AMBER DELATORRE Room #: [facility] IN M.R.#: [id number] Admission: 08/08/17 Attend Phys: Sam Yates MD Discharge: Date of : 54 Report #: [id number] THIS REPORT FOR: //name// CC: Shreyas Yates DATE OF SERVICE: 08/08/2017 This patient is being evaluated for the possibility of seizure. EEG was done by placing the electrodes by standard 10/20 system of electrode placement. Both referential and sequential montages were used for recording. Background activity in this patient's EEG appeared to be up to about 7 Hz and 25 microvolt. A lot of artifact is present because the patient is not able to cooperate. In O1 montage, lot of artifact is present. I discussed that with the cardiology technician, and he indicated that this patient did not cooperate, and he even replaced that electrode. Photic stimulation is unremarkable. IMPRESSION: This patient's EEG demonstrates a lot of artifact and is difficult to interpret. Abnormal activity is present, but that appeared to be because of defective O1 electrode. EEG is slow as a nonspecific finding which can occur with encephalopathy, effect of psychotropic medication, dementia, etc. Clinical correlation is recommended. I did not see any clearly well-defined epileptiform activity, but with this much artifact that cannot be excluded. If the patient becomes more cooperative, repeat EEG can be done in this patient. Thank you very much for this referral. <ELECTRONICALLY SIGNED> By: Jude Silverio MD 08/09/17 1228 1656 1754 Jude Silverio MD /nt
--- NOTE | ~2017-08-08 | H ---
[facility] [place] [address] HISTORY AND PHYSICAL Name: AMBER DELATORRE Room #: 170-3 ADM IN M.R.#: [id number] Admission: 08/08/17 Attend Phys: Sam Yates MD Discharge: Date of : 54 Report #: [id number] THIS REPORT FOR: //name// CC: Shreyas Yates DATE OF SERVICE: 08/08/2017 History was primarily obtained from talking to the nursing staff and Dr. Gomes in the Emergency Room. No family available at bedside. The patient was apparently found unresponsive on the porch and was brought into the Emergency Room at around 1:49 p.m. HISTORY OF PRESENT ILLNESS: I was able to review his previous admission here at [facility]. The patient has a history of malignant melanoma and has been on immunotherapy in the past, was admitted end of May for diarrhea. It was felt that his diarrhea was related to his immunotherapy, Opdivo. The patient was evaluated by Dr. Ervin from Oncology. Immunotherapy was held at that point, and the patient was discharged on steroids for his diarrhea. The patient was admitted in April for debility and cough. I am not sure whether the patient is still on the steroids or not. The patient was apparently found on the porch unresponsive by his neighbor, and EMS was called. It is unclear how long he was on the porch unresponsive. On arrival to the Emergency Room, the patient was found to be in acute respiratory distress, unresponsive, his initial blood pressure was 99/44. The patient was intubated by the ER physician to protect his airway. The patient has received total of 3 liters of normal saline so far and has been started on Levophed for hypotension. The patient is presently intubated, unresponsive to verbal stimuli, but very minimal to painful stimuli. According to the nursing note, neighbor reported seizure-like activity. EMS did not report any seizing upon arrival. His GCS score was 7. PAST MEDICAL HISTORY: Significant for malignant melanoma, Guillain-[place] syndrome, schizophrenia, Alzheimer disease, pacemaker defibrillator, hypertension, hypothyroidism and dyslipidemia. He had echocardiogram in 2015, it showed EF of 55-60%. ALLERGIES: HE IS ALLERGIC TO NEOMYCIN, BACITRACIN AND CORTISONE. HOME MEDICATIONS: List is not clear. We need to review with the family. Apparently, prednisone is still being listed as one of his medication. FAMILY HISTORY: Unable to obtain. REVIEW OF SYSTEMS: Unable to obtain because of his mental status. SOCIAL HISTORY: Unable to obtain because of his mental status. [address] [address] HISTORY AND PHYSICAL Name: AMBER DELATORRE Room #: 170-3 [facility] IN .R.#: [id number] Admission: 08/08/17 Attend Phys: Sam Yates MD Discharge: Date of : 54 Report #: [id number] PHYSICAL EXAMINATION: VITAL SIGNS: Reveal blood pressure is 99/59, heart rate of 110 per minute, GENERAL: The patient is on the ventilator, unresponsive. HEENT: Pupils are around 2 mm, questionable deviation of the eye to the right side. Pupils equal, reactive to light. No facial asymmetry noted. NECK: Supple. No bruit noted. No JVD. CARDIOVASCULAR: S1, S2. No S3. CHEST: Bilateral air entry present, coarse breath sounds in the bases. ABDOMEN: Soft. Bowel sounds reduced. No tenderness. There is hepatomegaly. PERIPHERY: Has 3+ pedal edema. Dorsalis pedis 1+. He has some erythema over the left leg, there is also erythema and skin tear on his left arm. IMAGING: Chest x-ray showed some linear atelectasis. No definitive infiltrate. Pacemaker in place. ET tube in place. He had a Doppler study done yesterday, which showed no evidence of any deep vein thrombosis. CT brain and CT abdomen and pelvis are pending. LABORATORY DATA: ABG showed a pH of 7.473, pCO2 of 31, pO2 of 143. Saturation is 99%, hemoglobin is 10.2. Sodium is 141, BUN and creatinine are 29 and 1.1. White count is 18,000. His platelets are low at 74. His platelet is 105 on 07/13/2017. ASSESSMENT AND PLAN: 1. Sepsis/septic shock. The patient has received 3 liters of fluid so far in the Emergency Room. He has been started on IV Levophed. A PICC line will be placed in the Emergency Room. The patient will be admitted to the ICU. We will consult Pulmonary for management of the vent and sepsis. Infectious Disease will be consulted. The patient will be continued on IV levofloxacin, Zosyn and vancomycin. Follow cultures and adjust antibiotic as needed. 2. Lower extremity swelling. A Venous Doppler of lower extremity has been requested to rule out any deep vein thrombosis. 3. Malignant melanoma. The patient was on immunotherapy 2 months ago. I am not sure what type of therapy he is presently getting. We will consult Dr. Ervin. 4. Recent prednisone therapy. I am not sure whether he is still on prednisone. We will place him on stress dose of IV steroids. 5. Guillain-Bar syndrome/schizoaffective disorder. 6. Hypothyroidism. The patient will be placed on IV levothyroxine at present. 7. Thrombocytopenia, not clear if it is related to his chemo or immunotherapy. 8. Altered mental status, questionable seizure-like activity, according to the neighbor. We will consult Neurology. CT of the brain is presently pending. 9. Deep venous thrombosis prophylaxis. He will be placed on SCD on the leg. [facility] [address] [place] [address] HISTORY AND PHYSICAL Name: AMBER DELATORRE Room #: 170-3 ADM IN M.R.#: [id number] Admission: 08/08/17 Attend Phys: Sam Yates MD Discharge: Date of : 54 Report #: [id number] Previously Dopplers are negative for deep venous thrombosis. 10. The patient's prognosis is guarded. <ELECTRONICALLY SIGNED> By: Sam Yates MD 08/08/17 1549 1405 1530 Sam Yates MD /nt
--- NOTE | ~2017-08-08 | EKG ---
[address] [employer] [place] [address] ELECTROCARDIOGRAM REPORT Name: AMBER DELATORRE Room #: 243-P ADM IN M.R.#: [id number] Admission: 08/08/17 Attend Phys: Sam Yates MD Discharge: Date of : 54 Report #: [id number] THIS REPORT FOR: //name// [facility] ED Test Date: 2017-08-08 Test Time: 13:46:48 Pat Name: AMBER DELATORRE Department: Room: 170 3 Gender: M Centrifugal Supervisor: LIZZ : 1950 Requested By: Jose Alberto Shepard Order Number: [id number] MD: Masood Jim Measurements Intervals [place] Rate: 115 P: 51 IA: 119 QRS: -72 QRSD: 111 T: 58 QT: 336 QTc: 465 Interpretive Statements Sinus tachycardia Incomplete RBBB and LAFB Consider RVH w/ secondary repol abnormality Compared to ECG 04/20/2017 17:43:05 Incomplete right bundle-branch block now present Sinus rhythm no longer present Electronically Signed On 08-09-2017 8:19:08 CDT by Masood Jim [email or web address] <ELECTRONICALLY SIGNED> By: Masood Jim MD 08/09/17 0819 1346 1346 Masood Jim MD /EPI
[~2017-08-08 12:30] MED LIST changes: -COLESTIPOL HCL1 G1 PO; -DILTIAZEM 24HR180 M1 PO; -DUONEB 2.5-0.5 M3 ML INH; -HYDROCODONE-AP1 EAC6 PO; -PACERONE 200 M200 MG PO; -VANCOMYCIN HCL10 GM PO; -VANCOMYCIN1 GM/200 M IV
[2017-08-08 12:56] LABS: POC CA IONIZED 4.4 mg/dL (4.5-5.3); POC CREATININE 1.1 mg/dL (0.6-1.3); POC HEMOGLOBIN 10.2 g/dL (14.0-18.0); POC POTASSIUM 4.6 mmol/L (3.5-5.1)
[2017-08-08 13:04] LABS: HEMATOCRIT 34.4 % (42.0-52.0); HEMOGLOBIN 11.5 gm/dL (14.0-18.0); MCH 29.7 pg (26.0-34.0); MCHC 33.5 g/dL (28.0-37.0); MCV 88.5 fL (80.0-100.0); RBC 3.89 mil/uL (4.50-6.00); RDW 21.9 % (10.5-14.5); WBC 18.8 thou/uL (4.0-11.0)
[2017-08-08 13:12] LABS: ANION GAP 8 mmol/L (7-16); BUN 23 mg/dL (7-18); CALCIUM 7.7 mg/dL (8.5-10.1); CHLORIDE 108 mmol/L (98-107); CO2 24 mmol/L (21-32); CREATININE 1.4 mg/dL (0.7-1.3); GLUCOSE 96 mg/dL (74-106); POTASSIUM 4.7 mmol/L (3.5-5.1); SODIUM 140 mmol/L (136-145)
[2017-08-08 13:20] LABS: SALICYLATE < 2.8 mg/dL (2.8-20.0); SGOT 33 U/L (15-37); SGPT 36 U/L (30-65); TOTAL BILIRUBIN 0.5 mg/dL (<0.1-1.0); TOTAL PROTEIN 4.7 g/dL (6.4-8.2); TROPONIN-I < 0.04 ng/mL (<0.06)
[2017-08-08 13:34] LABS: BE(vivo) -0.4 mmol/L (-2 to +3); HCO3 22.6 mmol/L (22.0-26.0); PCO2 31.6 mmHg (35.0-45.0); PO2 143.7 mmHg (80.0-100.0); pH 7.473 (7.360-7.450)
[2017-08-08 13:44] LABS: ABSOLUTE NEUTROPHILS 13.2 thou/uL (1.4-8.2); ANISOCYTOSIS 2+; METAMYELOCYTES 1 %; NUCLEATED RBCS 2 /100WBC; PLATELET COUNT 74 thou/uL (150-400); PLATELET ESTIMATE DECREASED
[2017-08-08 13:59] LABS: URINE BILIRUBIN NEGATIVE (Negative); URINE BLOOD 1+ (Negative); URINE CLARITY CLEAR; URINE COLOR YELLOW; URINE GLUCOSE-RANDOM* NEGATIVE (Negative); URINE KETONES NEGATIVE (Negative); URINE NITRITE-REFLEX NEGATIVE (Negative); URINE PROTEIN (DIPSTICK) NEGATIVE (Negative); URINE SPECIFIC GRAVITY 1.025 (1.005-1.035); URINE UROBILINOGEN 0.2 E.U./dl (0.2-1.0)
[2017-08-08 14:01] LABS: URINE LEUKOCYTES-REFLEX 2+ (Negative)
[2017-08-08 14:08] LABS: CASTS None Seen /LPF (None Seen); SQUAMOUS None Seen /LPF (0-3)
[2017-08-08 14:09] LABS: AMORPHOUS URATES Moderate /LPF (None Seen); BACTERIA-REFLEX 1-9 Few /HPF (None Seen); URINE RBC 0-2 Rare /HPF (0-2)
[2017-08-08 14:14] LABS: AMP/METHAMP Negative (Negative); BARBITURATES Negative (Negative); BENZODIAZEPINES Negative (Negative); COCAINE Negative (Negative); METHADONE Negative (Negative); OPIATES Negative (Negative); PCP Negative (Negative)
[2017-08-08 15:23] LABS: BE(vivo) -2.4 mmol/L (-2 to +3); HCO3 21.2 mmol/L (22.0-26.0); PCO2 32.6 mmHg (35.0-45.0); PO2 109.9 mmHg (80.0-100.0); sO2 98.2 % (92.0-98.0)
[2017-08-08 15:26] LABS: APTT 19.8 Seconds (24.5-32.8); FIBRINOGEN 238.1 mg/dL (210-360); PROTIME 9.6 Seconds (9.3-11.4)
[2017-08-08 17:31] LABS: CALCIUM 6.5 mg/dL (8.5-10.1); CREATININE 1.2 mg/dL (0.7-1.3)
[2017-08-08 17:32] LABS: POTASSIUM 3.4 mmol/L (3.5-5.1)
[2017-08-08] MEDS ORDERED: BENZTROPINE MES1 MG PO (17:59)
[2017-08-08] MEDS ORDERED: CLOZAPINE100 M1 PO (18:01)
[2017-08-08] MEDS ORDERED: PREDNISONE 20 M20 MG PO (18:06)
[2017-08-08] MEDS ORDERED: HYDROCODONE-AP1 EAC6 PO (18:11)
[2017-08-08 21:51] LABS: CALCIUM 6.4 mg/dL (8.5-10.1); CREATININE 1.2 mg/dL (0.7-1.3); POTASSIUM 3.9 mmol/L (3.5-5.1)
[2017-08-09] VITALS (43 sets, daily range): BP systolic 70–128; BP diastolic 49–88
[2017-08-09 04:58] LABS: BASOPHILS 0.2 % (0.0-2.0); HEMATOCRIT 31.3 % (42.0-52.0); HEMOGLOBIN 10.4 gm/dL (14.0-18.0); LYMPHOCYTES 3.6 % (24.0-44.0); MCH 29.5 pg (26.0-34.0); MCHC 33.3 g/dL (28.0-37.0); MCV 88.4 fL (80.0-100.0); MONOCYTES 2.7 % (1.0-8.0); PLATELET COUNT 52 thou/uL (150-400); POLYS 93.5 % (36.0-66.0); RBC 3.54 mil/uL (4.50-6.00); RDW 22.3 % (10.5-14.5); WBC 16.1 thou/uL (4.0-11.0)
[2017-08-09 05:06] LABS: ALBUMIN 1.5 g/dL (3.4-5.0); CALCIUM 6.4 mg/dL (8.5-10.1); CREATININE 1.1 mg/dL (0.7-1.3); MAGNESIUM 1.6 mg/dL (1.8-2.4); POTASSIUM 3.8 mmol/L (3.5-5.1); TOTAL BILIRUBIN 0.6 mg/dL (<0.1-1.0); TOTAL PROTEIN 3.9 g/dL (6.4-8.2)
[2017-08-09 05:21] LABS: BE(vivo) -2.5 mmol/L (-2 to +3); HCO3 21.3 mmol/L (22.0-26.0); PCO2 33.3 mmHg (35.0-45.0); PO2 220.8 mmHg (80.0-100.0); pH 7.423 (7.360-7.450); sO2 99.5 % (92.0-98.0)
[2017-08-09 09:24] LABS: APTT 31.3 Seconds (24.5-32.8); FIBRINOGEN 350.6 mg/dL (210-360); PROTIME 10.7 Seconds (9.3-11.4)
[2017-08-09 16:08] LABS: CALCIUM 6.1 mg/dL (8.5-10.1); CREATININE 0.9 mg/dL (0.7-1.3); MAGNESIUM 1.5 mg/dL (1.8-2.4); POTASSIUM 3.3 mmol/L (3.5-5.1)
[2017-08-09 20:22] LABS: POTASSIUM 3.6 mmol/L (3.5-5.1)
[2017-08-10] VITALS (40 sets, daily range): BP systolic 64–157; BP diastolic 55–101
[2017-08-10 03:26] LABS: HEMOGLOBIN 9.7 gm/dL (14.0-18.0); WBC 11.6 thou/uL (4.0-11.0)
[2017-08-10 03:28] LABS: LYMPHOCYTES 2.6 % (24.0-44.0); MCH 29.5 pg (26.0-34.0); MCHC 33.4 g/dL (28.0-37.0); MCV 88.3 fL (80.0-100.0); MONOCYTES 2.4 % (1.0-8.0); PLATELET COUNT 41 thou/uL (150-400); RBC 3.29 mil/uL (4.50-6.00); RDW 22.6 % (10.5-14.5)
[2017-08-10 03:30] LABS: ALBUMIN 1.8 g/dL (3.4-5.0); CALCIUM 6.3 mg/dL (8.5-10.1); CREATININE 0.8 mg/dL (0.7-1.3); MAGNESIUM 2.2 mg/dL (1.8-2.4); POTASSIUM 3.8 mmol/L (3.5-5.1); TOTAL BILIRUBIN 0.5 mg/dL (<0.1-1.0); TOTAL PROTEIN 4.3 g/dL (6.4-8.2)
[2017-08-10 08:39] LABS: BE(vivo) -3.3 mmol/L (-2 to +3); PCO2 35.3 mmHg (35.0-45.0); PO2 105.8 mmHg (80.0-100.0); pH 7.393 (7.360-7.450); sO2 97.9 % (92.0-98.0)
[2017-08-11] VITALS (24 sets, daily range): BP systolic 90–139; BP diastolic 70–106
[2017-08-11 05:32] LABS: HEMATOCRIT 30.3 % (42.0-52.0); HEMOGLOBIN 10.1 gm/dL (14.0-18.0); MCH 29.4 pg (26.0-34.0); MCHC 33.2 g/dL (28.0-37.0); MCV 88.6 fL (80.0-100.0); PLATELET COUNT 50 thou/uL (150-400); RBC 3.42 mil/uL (4.50-6.00); RDW 22.7 % (10.5-14.5); WBC 11.5 thou/uL (4.0-11.0)
[2017-08-11 05:36] LABS: BE(vivo) -3.4 mmol/L (-2 to +3); HCO3 20.6 mmol/L (22.0-26.0); PCO2 33.6 mmHg (35.0-45.0); pH 7.406 (7.360-7.450); sO2 98.5 % (92.0-98.0)
[2017-08-11 05:46] LABS: CALCIUM 6.2 mg/dL (8.5-10.1); MAGNESIUM 2.1 mg/dL (1.8-2.4); POTASSIUM 3.6 mmol/L (3.5-5.1); TOTAL BILIRUBIN 0.5 mg/dL (<0.1-1.0); TOTAL PROTEIN 4.6 g/dL (6.4-8.2)
[2017-08-11 05:56] LABS: ABSOLUTE NEUTROPHILS 11.3 thou/uL (1.4-8.2); ANISOCYTOSIS 3+; LARGE PLATELETS RARE; MACROCYTES SLIGHT
[2017-08-11 12:07] LABS: URINE BILIRUBIN NEGATIVE (Negative); URINE BLOOD 3+ (Negative); URINE CLARITY CLEAR; URINE COLOR YELLOW; URINE GLUCOSE-RANDOM* NEGATIVE (Negative); URINE KETONES NEGATIVE (Negative); URINE NITRITE-REFLEX NEGATIVE (Negative); URINE PROTEIN (DIPSTICK) 2+ (Negative); URINE SPECIFIC GRAVITY 1.025 (1.005-1.035); URINE UROBILINOGEN 0.2 E.U./dl (0.2-1.0)
[2017-08-11 12:09] LABS: URINE LEUKOCYTES-REFLEX TRACE (Negative)
[2017-08-11 12:17] LABS: BACTERIA-REFLEX None Seen /HPF (None Seen); CASTS None Seen /LPF (None Seen); CRYSTALS None Seen /LPF (None Seen); SQUAMOUS 0-3 Few /LPF (0-3); URINE RBC >20 Many /HPF (0-2); URINE WBC-REFLEX 6-15 Few /HPF (0-5)
[2017-08-12] VITALS (15 sets, daily range): BP systolic 96–124; BP diastolic 72–90
[2017-08-12 04:38] LABS: HEMATOCRIT 29.5 % (42.0-52.0); HEMOGLOBIN 10.1 gm/dL (14.0-18.0); MCH 30.1 pg (26.0-34.0); MCHC 34.1 g/dL (28.0-37.0); MCV 88.5 fL (80.0-100.0); RBC 3.33 mil/uL (4.50-6.00); RDW 22.6 % (10.5-14.5); WBC 10.7 thou/uL (4.0-11.0)
[2017-08-12 04:48] LABS: CALCIUM 6.4 mg/dL (8.5-10.1); CREATININE 0.9 mg/dL (0.7-1.3); POTASSIUM 3.8 mmol/L (3.5-5.1)
[2017-08-13 04:13] VITALS: BP 110/70
[2017-08-13 07:20] VITALS: BP 133/89
[2017-08-13 11:15] VITALS: BP 124/70
[2017-08-13 15:30] VITALS: BP 125/75
[2017-08-13 20:18] VITALS: BP 125/77
[2017-08-13 23:38] VITALS: BP 149/82
[2017-08-14 04:09] VITALS: BP 115/93
[2017-08-14 05:58] LABS: HEMATOCRIT 32.3 % (42.0-52.0); HEMOGLOBIN 10.8 gm/dL (14.0-18.0); MCHC 33.6 g/dL (28.0-37.0); MCV 89.5 fL (80.0-100.0); PLATELET COUNT 102 thou/uL (150-400); RBC 3.61 mil/uL (4.50-6.00); RDW 22.8 % (10.5-14.5); WBC 9.3 thou/uL (4.0-11.0)
[2017-08-14 06:20] LABS: CALCIUM 6.4 mg/dL (8.5-10.1); POTASSIUM 3.6 mmol/L (3.5-5.1)
[2017-08-14 07:07] VITALS: BP 120/90
[2017-08-14 08:37] LABS: ABSOLUTE NEUTROPHILS 8.2 thou/uL (1.4-8.2); ANISOCYTOSIS 3+; METAMYELOCYTES 3 %; MICROCYTES 2+; OVALOCYTES FEW; PLATELET ESTIMATE NORMAL; POLYCHROMASIA 1+; TOXIC GRANULATION SLIGHT
[2017-08-14 12:00] VITALS: BP 162/98
[2017-08-14 16:05] VITALS: BP 103/59
[2017-08-14 19:42] VITALS: BP 110/67
[2017-08-15 03:13] VITALS: BP 126/80
[2017-08-15 05:28] LABS: HEMATOCRIT 31.5 % (42.0-52.0); HEMOGLOBIN 10.5 gm/dL (14.0-18.0); MCH 29.9 pg (26.0-34.0); MCHC 33.4 g/dL (28.0-37.0); MCV 89.5 fL (80.0-100.0); PLATELET COUNT 121 thou/uL (150-400); RBC 3.52 mil/uL (4.50-6.00); RDW 22.7 % (10.5-14.5); WBC 11.1 thou/uL (4.0-11.0)
[2017-08-15 05:36] LABS: CALCIUM 6.4 mg/dL (8.5-10.1); CREATININE 0.8 mg/dL (0.7-1.3)
[2017-08-15 07:09] VITALS: BP 126/81
[2017-08-15 08:15] LABS: ABSOLUTE NEUTROPHILS 10.2 thou/uL (1.4-8.2); ANISOCYTOSIS 3+; METAMYELOCYTES 4 %; OVALOCYTES 1+; POLYCHROMASIA SLIGHT
[2017-08-15] MEDS ORDERED: VANCOMYCIN HCL10 GM PO (13:30)
[2017-08-15] MEDS ORDERED: VANCOMYCIN1 GM/200 M IV (13:30)
[2017-08-15] MEDS ORDERED: PACERONE 200 M200 MG PO (13:30)
[2017-08-15] MEDS ORDERED: DUONEB 2.5-0.5 M3 ML INH (13:30)
[2017-08-15] MEDS ORDERED: DILTIAZEM 24HR180 M1 PO (13:30)
[2017-08-15 13:59] VITALS: BP 126/81
[2017-08-15] MEDS ORDERED: COLESTIPOL HCL1 G1 PO (15:51)
== END 2017-08-15 14:24 | DRG 314 ==
LOC: ER 12:30 → ICU 13:33 → EROBS 13:33 → ICU 18:31 → 2N 08-12 11:47
PROVIDERS: Emergency Medicine; Hospitalist; Internal Medicine; Internal Medicine Hematology & Oncology; Internal Medicine Pulmonary Disease; Nurse Practitioner Acute Care
DX: T80.211A Bloodstream infection due to central venous catheter, initial encounter (principal); A41.9 Sepsis, unspecified organism; R65.21 Severe sepsis with septic shock; J96.00 Acute respiratory failure, unspecified whether with hypoxia or hypercapnia; J18.9 Pneumonia, unspecified organism; G93.40 Encephalopathy, unspecified; G61.0 Guillain-Barre syndrome; N39.0 Urinary tract infection, site not specified; E27.40 Unspecified adrenocortical insufficiency; E87.1 Hypo-osmolality and hyponatremia; E87.0 Hyperosmolality and hypernatremia; A04.72 Enterocolitis due to Clostridium difficile, not specified as recurrent; Y83.8 Other surgical procedures as the cause of abnormal reaction of the patient, or of later complication, without mention of misadventure at the time of the procedure; Y92.89 Other specified places as the place of occurrence of the external cause; I10 Essential (primary) hypertension; B95.62 Methicillin resistant Staphylococcus aureus infection as the cause of diseases classified elsewhere; E03.9 Hypothyroidism, unspecified; E78.5 Hyperlipidemia, unspecified; G30.9 Alzheimer's disease, unspecified; F25.9 Schizoaffective disorder, unspecified; E88.09 Other disorders of plasma-protein metabolism, not elsewhere classified; E83.51 Hypocalcemia; D69.6 Thrombocytopenia, unspecified; I48.91 Unspecified atrial fibrillation; I44.30 Unspecified atrioventricular block; G47.33 Obstructive sleep apnea (adult) (pediatric); F02.80 Dementia in other diseases classified elsewhere, unspecified severity, without behavioral disturbance, psychotic disturbance, mood disturbance, and anxiety; Z85.820 Personal history of malignant melanoma of skin; Z79.52 Long term (current) use of systemic steroids; Z79.899 Other long term (current) drug therapy; Z95.810 Presence of automatic (implantable) cardiac defibrillator; Z87.891 Personal history of nicotine dependence; Z88.1 Allergy status to other antibiotic agents; Z88.8 Allergy status to other drugs, medicaments and biological substances
CPT/HCPCS: 10078; 10081; 27000; 56526

== ENCOUNTER 2017-08-15 11:57 | Inpatient (IN) | payer OTHER ==
[~2017-08-15] VITALS: Ht 170.2 cm; Wt 79.7 kg
--- NOTE | ~2017-08-15 | H ---
[facility] [place] [address] HISTORY AND PHYSICAL Name: AMBER DELATORRE Room #: 505-P ADM IN M.R.#: [id number] Admission: 08/15/17 Attend Phys: Bello Samuel MD Discharge: Date of : 54 Report #: [id number] THIS REPORT FOR: //name// CC: Bello Albacinthia Cidaker DATE OF SERVICE: 08/15/2017 HISTORY OF PRESENT ILLNESS: This is a 66-year-old gentleman who was admitted to [facility] after becoming unresponsive at home, witnessed by a neighbor outside. It appeared he had seizure-type activity. He was brought to the Emergency Department and found to be septic, ultimately due to a Port-A-Cath infection. He has had the Port-A-Cath removed. He was treated with broad-spectrum antibiotics initially in the Intensive Care Unit. He was also noted to have respiratory failure. He developed antibiotic-associated diarrhea, which was positive for C. diff. He has past medical history of metastatic melanoma, on chronic immunosuppression with high-dose steroids and also history of Guillain-Rippey. Due to his functional decline, he has been admitted to inpatient rehab for further therapies before returning back to his home with his family. Today, the patient is seen working with therapy. He has had increased edema in his bilateral lower extremities along with his left hand, which has subsequently led to increasing blisters on lower extremities and upper extremities. He has had a 20+ weight gain in the past one week. He denies pain, cough, shortness of breath, nausea or constipation. He has a good appetite. He reports urinating as normal. Premorbidly, the patient has a walker at home. Sister had reported he does not use the walker in the home setting often and uses it for longer distances. She did report several premorbid falls. He was independent for feeding, grooming at home and sister helped with remainder of astrobiologist and writing. PAST MEDICAL HISTORY: As listed above, malignant melanoma, Guillain-Rippey, schizophrenia, Alzheimer disease, pacemaker defibrillator, hypertension, hypothyroidism and hyperlipidemia. Echocardiogram in 2015 showed an EF of 55% to 60%. ALLERGIES: NEOMYCIN, BACITRACIN AND CORTISONE. CURRENT MEDICATIONS: Prednisone 60 mg daily, multivitamin 1 tablet daily, lactobacillus 1 capsule daily, diltiazem 180 mg daily, vitamin D 2000 units daily by mouth, Lipitor 10 mg daily, Protonix 40 mg daily, levothyroxine 150 mcg daily, vancomycin 250 mL IV daily, clozapine 100 mg 3 tablets by mouth at bedtime, Depakote 250 twice a day, Celexa 40 mg at bedtime, benztropine 1 mg b.i.d., amiodarone 400 mg twice a day, DuoNebs q. 6 hours, [place] 5/325 one tablet q. 4 hours p.r.n., vancomycin 250 mg q.i.d. by mouth, promethazine 25 mg q. 4 hours p.r.n., Zofran 4 mg q. 8 hours p.r.n., senna 1 tablet daily p.r.n., milk of mag 10 mL daily p.r.n., Colace 100 mg twice a day p.r.n. and bisacodyl [facility] [address] [place] [address] HISTORY AND PHYSICAL Name: AMBER DELATORRE Room #: 505-P [facility] IN M.R.#: [id number] Admission: 08/15/17 Attend Phys: Bello Samuel MD Discharge: Date of : 54 Report #: [id number] 10 mg suppository at bedtime p.r.n. HABITS: He is a nonsmoker. No alcohol use and non-illicit drug use. SOCIAL HISTORY: The patient lives in a house with his sister. There are 3 entry steps and zero steps inside. Premorbidly has a walker at home, but did not use often. REVIEW OF SYSTEMS: Remainder of his 12-point review of systems is negative, except as listed in the HPI. PHYSICAL EXAMINATION: VITAL SIGNS: Blood pressure 178/72, respirations 18, pulse of 76 and temperature 36.9. He has 98% oxygen on room air. GENERAL: He is awake, alert and oriented x 3. He is a very pleasant gentleman. He is a very poor historian, although he does answer orientation questions correctly. He has very poor recall of events. HEENT: Head is normocephalic. EOMs are intact. CHEST: Lungs are diminished in the bases. No crackle, no wheeze. CARDIAC: S1, S2 present. ABDOMEN: Bowel sounds positive. Soft, nontender and nondistended. GENITOURINARY: Deferred. EXTREMITIES: He has 3+ bilateral lower extremity edema. He has 3+ pitting edema in the left hand, up to the elbow. Trace edema on the right upper extremity. Functional range of motion in the left upper extremity is limited due to the edema. Functional range of motion intact on the right upper extremity. He has decreased sensation in bilateral lower extremities. He has significant left upper extremity tremor. Max assist for bathing, dependent for lower extremity dressing. He is max assist to self-propel in manual wheelchair 50 feet. He does require several verbal cues, mod assist ambulated 8 feet on the parallel bars with a walker. SKIN: Multiple abrasions and bruising to upper extremities. He has blisters to the lower extremities from the increased edema. They are draining serous drainage and have Mepilex placed over. LABORATORY DATA: On 08/16/2017, sodium 149, potassium 3.4, BUN 23, creatinine 0.9 and glucose 142. WBC is 11.3, hemoglobin 10.1, hematocrit 31.1 and platelets 129,000. ASSESSMENT: 1. Encephalopathy, toxic metabolic. 2. Dysphagia 3. Gait instability. 4. Septic shock due to central venous access infection. 5. Metastatic melanoma, on chronic immunosuppression. 6. Edema with 20-pound weight gain. [facility] [address] [place] [address] HISTORY AND PHYSICAL Name: AMBER DELATORRE Room #: 505-P ADM IN .R.#: [id number] Admission: 08/15/17 Attend Phys: Bello Samuel MD Discharge: Date of : 54 Report #: [id number] 7. Clostridium difficile colitis. 8. History of Guillain Rippey. 9. Atrial fibrillation. 10. Acute respiratory failure, resolved. PLAN: The patient is admitted to Inpatient Rehab for physical, occupational and speech therapies with his goal to return back to his home with his sister. Hospitalist has been notified on weight gain and increasing edema, limiting his therapy today. Further orders pending their assessment. We will continue on his daily weights. Wound care nurse will be consulted to follow for skin breakdown. <ELECTRONICALLY SIGNED> By: VENTURA Byrne 08/17/17 1502 0932 1022 VENTURA Byrne /nt
--- NOTE | ~2017-08-15 | HC ---
[facility] [place] [address] CONSULTATION Name: AMBER DELATORRE Room #: 505-P [facility] IN M.R.#: [id number] Admission: 08/15/17 Attend Phys: Bello Samuel MD Discharge: Date of : 54 Report #: [id number] THIS REPORT FOR: //name// CC: Bello Salgado DATE OF SERVICE: 08/21/2017 HISTORY OF PRESENT ILLNESS: This is a 67-year-old male patient who was evaluated by me for the possibility of Parkinson disease. He indicates he has a tremor on the left hand. He indicates tremor is several years' duration. He does not know the exact duration. According to him, the tremor started spontaneously and it is continuous. He said it does not interfere with his daily activity and he does not want any treatment for that. He had a CT scan of the head in the computer and that does not show any focal abnormality. REVIEW OF SYSTEMS: Indicate that this patient has a history of melanoma. He was in the hospital for what looks like encephalopathy. He said he is doing better. When I talked to him, he has a profound weakness of both lower extremities. He has had this happen in relation to the acute illness. Record indicates that he has a history of Guillain-[place] syndrome. I do not know how it affected him and when was the diagnosis made because he does not provide much history in that regard. I will try to talk to you tomorrow. There was also a question of seizure activity at one time. I do not think it was thought that he had a true seizure. He apparently uses a walker at home, but not very often. REVIEW OF SYSTEMS: Also indicate that he has history of pacemaker, Guillain-[place] syndrome, malignant melanoma, but I do not get very good history from him. I carried out the 14-point review of system from the record and this is his relevant 14-point review of system. PAST MEDICAL HISTORY: What looks like pretty significant encephalopathy. FAMILY HISTORY: Negative for any essential tremor. SOCIAL HISTORY: He walks with a walker at home and lives with the sister. PHYSICAL EXAMINATION: Indicate that the patient is alert, responsive, oriented. His speech, concentration, fund of knowledge and memory is at his baseline. His cranial nerve examination 2-12 looks unremarkable. He does have a significant tremor in the left upper extremity. He does not have much tremor in the right upper extremity. He is profoundly weak in the lower extremities. His position sense appeared to be present. His reflexes are absent. His tone looks unremarkable. He does not have cerebellar sign in the upper extremity. Lower extremity, he has too little strength. I could not look at his fundus. He is otherwise a well-developed individual who does not have any dysmorphic features [address] [address] CONSULTATION Name: AMEBR DELATORRE Room #: 505-P [facility] IN M.R.#: [id number] Admission: 08/15/17 Attend Phys: Bello Samuel MD Discharge: Date of : 54 Report #: [id number] of eyes, ears and face. His vision and hearing looks adequate. He does not have any respiratory difficulty or any significant rhonchi. His cardiac examination is unremarkable. I could not feel his pulses. His blood pressure is 148/81, respirations 18, pulse is 60, temperature is 97.8. LABORATORY DATA: Indicate anemia at hemoglobin of 9.3. CT was reviewed and summarized above. IMPRESSION: Tremor. That is the reason the consult is for. I discussed his options with him. It looks like Parkinson tremor. He indicates it is not interfering with his daily activity. He does not want any treatment for that. The treatment of Parkinson tremor is symptomatic. Therefore, if he does not want the treatment, we will not do that. He does appear to have a profound weakness in the lower extremities. I do not know what his baseline is. I do not know much about his Guillain-[place] history. I will talk to you tomorrow. It may be critical illness neuropathy. He will need more workup, but we have nothing to do more workup like EMG machines here. We do not have any spine physician who can do the spine evaluation. I will talk to you, but I will defer any evaluation of management to you and confine myself to tremor, which I do not believe any active treatment is needed and he can get the further workup as an outpatient if he wants further treatment. Presently, he does not desire any treatment because he says it does not interfere with his daily activity. Thank you very much for this referral and I will talk to you about this patient. <ELECTRONICALLY SIGNED> By: Jude Silverio MD 08/27/172019 193 0043 Jude Silverio MD /nt
--- NOTE | ~2017-08-15 | PLAN ---
[facility] [place] [address] REHAB UNIT PLAN OF CARE Name: AMBER DELATORRE Room #: 505-P ADM IN M.R.#: [id number] Admission: 08/15/17 Attend Phys: Bello Samuel MD Discharge: Date of : 54 Report #: [id number] THIS REPORT FOR: //name// CC: Bello Pattersonsusanna Salgado DATE OF SERVICE: 08/17/2017 SUBJECTIVE: The patient is seen back today in followup. He is in no distress. Last recorded temperature 36.6, pulse 70, respirations 18, blood pressure 120/74. No focal calf swelling. Transfers are max assist with gait mod assist to 8 feet with the parallel bars. In occupational therapy, lower body dressing has been dependent. In speech therapy, he has mild to moderate comprehensive deficits. He is on a regular diet now with all liquids. ASSESSMENT: 1. Encephalopathy, multifactorial, infectious and metabolic. 2. Gait instability. 3. Septic shock. 4. Metastatic melanoma, on chronic immunosuppression. 5. Lower extremity edema. He does have some hypoalbuminemia, which is noted and has had intermittent Lasix dosing. 6. Clostridium difficile colitis. 7. History of Guillain-[place]. 8. Atrial fibrillation. 9. Acute respiratory failure, resolved. PLAN: The overall plan of care is based on the preadmission screen, post-admission physician evaluation, and information garnered from therapy assessments. 1. Estimated length of stay is probably at least 10 days to 2 weeks pending progress. 2. Medical prognosis is reasonably good. 3. Anticipated interventions include the interdisciplinary acute inpatient rehabilitation program with the goal of maximizing the patient's functional independence. PT and OT are involved as well as speech therapy. Rehab nursing is assisting regarding medication management, skin care prophylaxis, bowel and bladder issues and nursing education. The event management consultant physicians are involved in the interdisciplinary rehabilitation team. Anticipated functional outcomes would be for the patient to become modified independent with transfers, mobility and ADLs. He did have a walker at home premorbidly, although he apparently did not utilize it often. 4. Discharge destination would be home with his sister. 5. Expected therapy by discipline includes PT, OT and speech 1 hour per day [address] [address] REHAB UNIT PLAN OF CARE Name: AMBER DELATORRE Room #: 505-P ADM IN [facility].#: [id number] Admission: 08/15/17 Attend Phys: Bello Samuel MD Discharge: Date of : 54 Report #: [id number] each five days a week throughout the duration of the acute inpatient rehabilitation stay. <ELECTRONICALLY SIGNED> By: Bello Samuel MD 08/21/17 1440 [id number] Bello Samuel MD /PMT
--- NOTE | ~2017-08-15 | H ---
[facility] [place] [address] HISTORY AND PHYSICAL Name: AMBER DELATORRE Room #: 505-P ADM IN M.R.#: [id number] Admission: 08/15/17 Attend Phys: Bello Samuel MD Discharge: Date of : 54 Report #: [id number] THIS REPORT FOR: //name// CC: Bello Albaore Salgado DATE OF SERVICE: 08/15/2017 ADDENDUM/POSTADMISSION PHYSICIAN EVALUATION Please see Arianna Ellsworth's history and physical dictation. SUBJECTIVE: The patient in no distress. He has now been admitted to the acute inpatient rehab mittal. OBJECTIVE: He has 2+ to 3+ pitting edema. No focal calf swelling. Functionally, he has been working in therapies with transfers at a max assist level and he has started getting up in the parallel bars. He does have qinr-ks-rsxfsjei comprehensive deficits and is on a pureed diet with nectar thickened liquids. He is dependent for lower body dressing. ASSESSMENT: 1. Rehabilitation diagnosis for admission is the toxic metabolic encephalopathy, which is gradually improving. 2. Dysphagia. 3. Acute respiratory failure. 4. Methicillin-resistant Staphylococcus aureus bacteremia. 5. History of malignant melanoma. 6. Possible obstructive sleep apnea. 7. History of schizophrenia. PLAN: The patient is admitted for acute in-hospital inpatient rehabilitation. From a post-admission physician evaluation perspective, there are no relevant changes since the preadmission screening. Please see the above review of prior and current medical and functional conditions and comorbidities. Please see the patient's previous and current functional status. As far as risk of complications, he does have the multiple medical comorbidities as noted above. The initial plan of care involves the interdisciplinary acute inpatient rehabilitation program with goal of maximizing his functional independence, so he can hopefully return back to his prior living situation. Prognosis is reasonably good with estimated length of stay probably at least 3 weeks pending progress. Potential barriers would include his multiple medical comorbidities and decreased functional status. REVIEW OF SYSTEMS: No current complaints of chest pain, abdominal discomfort. He does have lower extremity edema, which he thinks is affecting some of his [facility] [address] [place] [address] HISTORY AND PHYSICAL Name: NANDINIAMBER Room #: 505-P ADM IN M.R.#: [id number] Admission: 08/15/17 Attend Phys: Bello Samuel MD Discharge: Date of : 54 Report #: [id number] ability in therapies. On examination, he does have some decreased attention. Question regarding some safety and insight, need some verbal cues. For examination, otherwise, see the noted history and physical dictation. <ELECTRONICALLY SIGNED> By: Bello Samuel MD 08/21/17 1440 [id number] [id number] Bello Samuel MD /nt
--- NOTE | ~2017-08-15 | HC ---
[facility] [place] [address] CONSULTATION Name: AMBER DELATORRE Room #: 505-P [facility] IN M.R.#: [id number] Admission: 08/15/17 Attend Phys: Bello Samuel MD Discharge: Date of : 54 Report #: [id number] THIS REPORT FOR: //name// CC: Bello Albacinthia Salgado DATE OF SERVICE: 08/18/2017 ATTENDING PHYSICIAN: Bello Samuel MD FLUX PLANT OPERATOR: Isaiah Ramires, PhD CLINICAL PRESENTATION: The patient is a 67-year-old male admitted to the rehabilitation unit at [facility] for comprehensive inpatient rehabilitation program to improve functional mobility, activities of daily living and self-care and mental status secondary to deficits from an encephalopathy due to toxic metabolic changes. The patient has a history of metastatic melanoma and is on chronic immunosuppression that includes high dose steroids. He has a history of Guillain-[place] syndrome. The patient experienced a functional decline and was admitted to rehabilitation to improve activities of daily living, self-care and mental status. His medical history includes schizophrenia - paranoid type, Alzheimer disease, malignant melanoma, Guillain-[place] syndrome, hypertension, hypothyroidism and hyperlipidemia. Additional diagnoses include septic shock due to central venous access infection, dysphagia, edema with 20-pound weight gain, C. diff and acute respiratory failure, resolved. A complete description of his medical condition and history can be found in his medical record. Neuropsychological consultation was requested to provide assistance in the assessment of cognitive and emotional status and to provide recommendations and services. Prior to this most recent admission, he was living with the assistance of his sister in the community. The patient has never driven. He has a learning disability, but no prior workup or history of developmental disability. The patient has 1 brother and 1 sister. His last grade completed is the 11th. 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 He reportedly has been engaged, but broke off the marriage. TECHNIQUES UTILIZED: Clinical interview, review of medical records, staff consultation and behavioral observation, mini-mental status exam 2 standard version, verbal fluency assessment and family interview - sister. EXAMINATION FINDINGS: The patient was alert and cooperative with the assessment. He accurately described events surrounding his admission. There is no evidence of aphasia. He does not report auditory or visual hallucinations at this time. However, he has been diagnosed with schizophrenia. His personality [facility] [address] [place] [address] CONSULTATION Name: AMBER DELATORRE Room #: 505-P [facility] IN M.R.#: [id number] Admission: 08/15/17 Attend Phys: Bello Samuel MD Discharge: Date of : 54 Report #: [id number] is engaging and personable. The patient indicates feeling frustrated with his inability to walk. His sister has been providing assistance in the management of medication, finances and nutrition. The patient reports feelings of anxiety. He does not report difficulty with sleep or appetite. Memory problems are reported by the patient and his sister. His performance on the MMSE 2 brief version is within normal limits with a raw score of 14 of 16. He was 3 of 3 for initial registration, 5 of [address] and 1 of 3 for immediate recall of 3 items after a brief time delay and distraction. His performance deteriorated on the MMSE 2 standard version to a raw score of 21 of 30, which is a T score of 24 and percentile rank of less than 1. He was 0 of 5 for serial 7's, 2 of 2 for naming, 1 of 1 for repetition, 3 of 3 for auditory comprehension. He could read and follow a single command. The patient was unable to copy a simple geometric design or write a sentence. His performance in letter fluency was extremely low with a raw score of 6 and a T score of 21. Category fluency was extremely low with a raw score of 13 and a T score of 24. Brief abstract reasoning test was within normal limits with a raw score of 6 of 8. Moderate to severe deficits are suggested in executive functioning, attention and concentration and immediate recall. Abstract verbal reasoning was within normal limits with a raw score of 6 of 8. DIAGNOSTIC IMPRESSION: Major neurocognitive disorder (dementia) - unspecified, without behavior disorder - extent to be determined, likely in the moderate range. Schizophrenia, paranoid type. Unspecified anxiety disorder. RECOMMENDATIONS: The patient will continue to require help in the management of medication, nutrition and finances. His sister is very supportive. Verbal reassurance in regard to his participation in therapies and encouragement to engage in activity for improvement of general strengthening and endurance will also be helpful. Continued psychiatric management of medications as necessary. [address] [address] CONSULTATION Name: AMBER DELATORRE Room #: 505-P [facility] IN M.R.#: [id number] Admission: 08/15/17 Attend Phys: Bello Samuel MD Discharge: Date of : 54 Report #: [id number] Thank you very much for allowing me to provide the consultation on this patient. <ELECTRONICALLY SIGNED> By: Isaiah Ramires, PhD 08/20/17 1853 1331 09 Isaiah Ramires, PhD /nt
[~2017-08-15 11:57] MED LIST changes: +HYDROCODONE-AP1 EAC6 PO
[2017-08-15] MEDS ORDERED: PACERONE 200 M200 MG PO (13:30)
[2017-08-15] MEDS ORDERED: DILTIAZEM 24HR180 M1 PO (13:30)
[2017-08-15] MEDS ORDERED: VANCOMYCIN HCL10 GM PO (13:30)
[2017-08-15] MEDS ORDERED: DUONEB 2.5-0.5 M3 ML INH (13:30)
[2017-08-15] MEDS ORDERED: VANCOMYCIN1 GM/200 M IV (13:30)
[2017-08-15 15:00] VITALS: BP 170/80
[2017-08-15] MEDS ORDERED: COLESTIPOL HCL1 G1 PO (15:51)
[2017-08-15 21:17] VITALS: BP 178/72
[2017-08-16 06:10] LABS: HEMATOCRIT 31.1 % (42.0-52.0); HEMOGLOBIN 10.1 gm/dL (14.0-18.0); MCH 29.6 pg (26.0-34.0); MCHC 32.6 g/dL (28.0-37.0); MCV 90.7 fL (80.0-100.0); RBC 3.43 mil/uL (4.50-6.00); RDW 22.7 % (10.5-14.5); WBC 11.3 thou/uL (4.0-11.0)
[2017-08-16 06:38] LABS: CALCIUM 6.5 mg/dL (8.5-10.1); CREATININE 0.9 mg/dL (0.7-1.3); POTASSIUM 3.4 mmol/L (3.5-5.1)
[2017-08-16 08:55] VITALS: BP 104/78
[2017-08-16 20:29] VITALS: BP 120/74
[2017-08-17 08:12] LABS: HEMOGLOBIN 9.8 gm/dL (14.0-18.0); MCH 30.1 pg (26.0-34.0); MCHC 33.8 g/dL (28.0-37.0); MCV 89.1 fL (80.0-100.0); PLATELET COUNT 108 thou/uL (150-400); RBC 3.25 mil/uL (4.50-6.00); WBC 10.5 thou/uL (4.0-11.0)
[2017-08-17 08:30] VITALS: BP 135/104
[2017-08-17 08:33] LABS: CALCIUM 6.8 mg/dL (8.5-10.1); CREATININE 0.9 mg/dL (0.7-1.3); MAGNESIUM 1.8 mg/dL (1.8-2.4); POTASSIUM 3.6 mmol/L (3.5-5.1)
[2017-08-17 08:37] LABS: ABSOLUTE NEUTROPHILS 8.9 thou/uL (1.4-8.2); METAMYELOCYTES 1 %; PLATELET ESTIMATE DECREASED
[2017-08-17 08:38] LABS: ANISOCYTOSIS 1+; POIKILOCYTOSIS 1+
[2017-08-17 08:39] LABS: OVALOCYTES FEW
[2017-08-17 08:40] LABS: MICROCYTES 1+
[2017-08-17 08:41] LABS: MACROCYTES SLIGHT
[2017-08-17 20:22] VITALS: BP 107/39
[2017-08-18 09:40] VITALS: BP 146/111
[2017-08-18 19:45] VITALS: BP 104/53
[2017-08-19 06:15] LABS: HEMOGLOBIN 9.3 gm/dL (14.0-18.0); MCH 31.1 pg (26.0-34.0); MCHC 34.6 g/dL (28.0-37.0); PLATELET COUNT 91 thou/uL (150-400); RDW 22.7 % (10.5-14.5); WBC 8.8 thou/uL (4.0-11.0)
[2017-08-19 06:25] LABS: CALCIUM 7.2 mg/dL (8.5-10.1); CREATININE 0.9 mg/dL (0.7-1.3); POTASSIUM 3.4 mmol/L (3.5-5.1)
[2017-08-19 06:49] LABS: ABSOLUTE NEUTROPHILS 7.9 thou/uL (1.4-8.2); PLATELET ESTIMATE DECREASED
[2017-08-19 06:50] LABS: ANISOCYTOSIS 1+
[2017-08-19 20:15] VITALS: BP 124/80
[2017-08-20 09:08] VITALS: BP 86/64
[2017-08-20 19:22] VITALS: BP 109/84
[2017-08-21 07:15] VITALS: BP 148/81
[2017-08-21 20:16] VITALS: BP 108/83
[2017-08-22 03:37] LABS: HEMATOCRIT 28.7 % (42.0-52.0); HEMOGLOBIN 9.6 gm/dL (14.0-18.0); MCH 30.5 pg (26.0-34.0); MCHC 33.6 g/dL (28.0-37.0); MCV 90.8 fL (80.0-100.0); PLATELET COUNT 86 thou/uL (150-400); RBC 3.16 mil/uL (4.50-6.00); RDW 22.9 % (10.5-14.5)
[2017-08-22 03:42] LABS: CALCIUM 7.5 mg/dL (8.5-10.1); CREATININE 0.9 mg/dL (0.7-1.3); MAGNESIUM 1.9 mg/dL (1.8-2.4); POTASSIUM 3.7 mmol/L (3.5-5.1)
[2017-08-22 05:11] LABS: ABSOLUTE NEUTROPHILS 5.5 thou/uL (1.4-8.2); ANISOCYTOSIS 2+; MACROCYTES 1+; MYELOCYTES 1 %; OVALOCYTES OCCASIONAL; POLYCHROMASIA OCCASIONAL
[2017-08-22 07:15] VITALS: BP 108/68
[2017-08-22 19:40] VITALS: BP 113/71
[2017-08-23 07:48] VITALS: BP 127/68
[2017-08-23 19:52] VITALS: BP 114/73
[2017-08-24 12:34] LABS: HEMATOCRIT 28.1 % (42.0-52.0); HEMOGLOBIN 9.7 gm/dL (14.0-18.0); MCH 31.2 pg (26.0-34.0); MCHC 34.4 g/dL (28.0-37.0); MCV 90.5 fL (80.0-100.0); RDW 23.8 % (10.5-14.5); WBC 7.3 thou/uL (4.0-11.0)
[2017-08-24 12:44] LABS: CALCIUM 7.8 mg/dL (8.5-10.1); MAGNESIUM 1.7 mg/dL (1.8-2.4); POTASSIUM 3.1 mmol/L (3.5-5.1)
[2017-08-24 12:56] LABS: ABSOLUTE NEUTROPHILS 6.9 thou/uL (1.4-8.2); ANISOCYTOSIS 2+
[2017-08-24 12:57] LABS: PLATELET COUNT 68 thou/uL (150-400); PLATELET ESTIMATE DECREASED
[2017-08-24 20:28] VITALS: BP 112/67
[2017-08-25 05:09] LABS: ALBUMIN 2.1 g/dL (3.4-5.0); CALCIUM 7.6 mg/dL (8.5-10.1); CREATININE 0.8 mg/dL (0.7-1.3); POTASSIUM 3.6 mmol/L (3.5-5.1); TOTAL BILIRUBIN 0.6 mg/dL (<0.1-1.0); TOTAL PROTEIN 4.6 g/dL (6.4-8.2)
[2017-08-25 07:55] VITALS: BP 100/60
[2017-08-25 20:30] VITALS: BP 110/60
[2017-08-26 06:00] VITALS: BP 115/60
[2017-08-26 09:28] VITALS: BP 13/54; BP 133/54
[2017-08-26 20:10] VITALS: BP 113/68
[2017-08-27 06:17] LABS: ABSOLUTE NEUTROPHILS 4.3 thou/uL (1.4-8.2); BASOPHILS 0.2 % (0.0-2.0); EOSINOPHILS 0.5 % (0.0-3.0); HEMATOCRIT 28.9 % (42.0-52.0); HEMOGLOBIN 10.1 gm/dL (14.0-18.0); LYMPHOCYTES 10.4 % (24.0-44.0); MCV 88.6 fL (80.0-100.0); MONOCYTES 3.5 % (1.0-8.0); POLYS 85.4 % (36.0-66.0); RBC 3.27 mil/uL (4.50-6.00); RDW 22.8 % (10.5-14.5)
[2017-08-27 06:29] LABS: POTASSIUM 3.3 mmol/L (3.5-5.1)
[2017-08-27 07:09] LABS: ANISOCYTOSIS 2+; OVALOCYTES 1+; PLATELET COUNT 63 thou/uL (150-400); PLATELET ESTIMATE DECREASED; POLYCHROMASIA 1+
[2017-08-27 07:25] VITALS: BP 168/80
[2017-08-27 20:29] VITALS: BP 131/79
[2017-08-28 08:00] VITALS: BP 114/62
[2017-08-28 21:14] VITALS: BP 113/68
[2017-08-29 07:30] VITALS: BP 130/92
[2017-08-29 19:30] VITALS: BP 156/79
[2017-08-30] MEDS ORDERED: CLOZAPINE100 MG PO (11:58)
[2017-08-30 20:07] VITALS: BP 160/82
[2017-08-31 07:30] VITALS: BP 136/85
[2017-08-31] MEDS ORDERED: LASIX 40 MG TAB40 M2 PO (10:22)
[2017-08-31] MEDS ORDERED: HOME MEDICATION PO (10:22)
[2017-08-31] MEDS ORDERED: PACERONE 200 M200 MG PO (10:22)
[2017-08-31] MEDS ORDERED: LASIX 20 MG TAB20 MG PO (10:22)
[2017-08-31] MEDS ORDERED: VANCOMYCIN HCL10 GM PO ×2 (10:22→10:24)
[2017-08-31] MEDS ORDERED: ACIDOPHILUS1 EAC4 PO (10:22)
[2017-08-31] MEDS ORDERED: VANCOMYCIN1 GM/200 M IV ×2 (10:22→10:24)
== END 2017-08-31 14:40 | DRG 91 ==
PROVIDERS: Hospitalist; Nurse Practitioner; Physical Medicine & Rehabilitation; Specialist
DX: G92 Toxic encephalopathy (principal); J96.00 Acute respiratory failure, unspecified whether with hypoxia or hypercapnia; R65.21 Severe sepsis with septic shock; A41.02 Sepsis due to Methicillin resistant Staphylococcus aureus; J18.9 Pneumonia, unspecified organism; G72.0 Drug-induced myopathy; T80.211A Bloodstream infection due to central venous catheter, initial encounter; G61.0 Guillain-Barre syndrome; A04.72 Enterocolitis due to Clostridium difficile, not specified as recurrent; N39.0 Urinary tract infection, site not specified; E87.0 Hyperosmolality and hypernatremia; J98.11 Atelectasis; F20.0 Paranoid schizophrenia; B37.89 Other sites of candidiasis; R26.9 Unspecified abnormalities of gait and mobility; T38.0X5A Adverse effect of glucocorticoids and synthetic analogues, initial encounter; Y92.89 Other specified places as the place of occurrence of the external cause; G30.9 Alzheimer's disease, unspecified; Y83.8 Other surgical procedures as the cause of abnormal reaction of the patient, or of later complication, without mention of misadventure at the time of the procedure; G47.33 Obstructive sleep apnea (adult) (pediatric); B37.9 Candidiasis, unspecified; E55.9 Vitamin D deficiency, unspecified; E16.2 Hypoglycemia, unspecified; F02.80 Dementia in other diseases classified elsewhere, unspecified severity, without behavioral disturbance, psychotic disturbance, mood disturbance, and anxiety; E03.9 Hypothyroidism, unspecified; E78.5 Hyperlipidemia, unspecified; I10 Essential (primary) hypertension; I48.91 Unspecified atrial fibrillation; R53.81 Other malaise; E87.6 Hypokalemia; D69.6 Thrombocytopenia, unspecified; D64.9 Anemia, unspecified; F41.9 Anxiety disorder, unspecified; Z95.810 Presence of automatic (implantable) cardiac defibrillator; Z88.1 Allergy status to other antibiotic agents; Z88.8 Allergy status to other drugs, medicaments and biological substances; Z85.820 Personal history of malignant melanoma of skin; R13.10 Dysphagia, unspecified
CPT/HCPCS: 10112

== ENCOUNTER → 2017-10-18 | Outpatient (CLI) | payer OTHER ==
[~2017-10-18] MED LIST changes: +ACIDOPHILUS1 EAC4 PO; +CLOZAPINE100 MG PO; +COLESTIPOL HCL1 G1 PO; +DILTIAZEM 24HR180 M1 PO; +DUONEB 2.5-0.5 M3 ML INH; +HOME MEDICATION PO; +LASIX 20 MG TAB20 MG PO; +LASIX 40 MG TAB40 M2 PO; +PACERONE 200 M200 MG PO; +VANCOMYCIN HCL10 GM PO; +VANCOMYCIN1 GM/200 M IV
== END ==
LOC: MRI 14:02
DX: M47.26 Other spondylosis with radiculopathy, lumbar region (principal); M51.16 Intervertebral disc disorders with radiculopathy, lumbar region; I48.91 Unspecified atrial fibrillation